=== PATIENT | male | born 1945 | race Caucasian/White ===

== ENCOUNTER 2021-04-09 08:07 | Outpatient (CLI) | payer MEDICARE, SELFPAY ==
[2021-04-09 08:46] LABS: Alveolar/Arterial O2 Gradient 16.8 mmHg; Base Excess ABG 1.6 mEq/l (+/-2.0); Carboxyhemoglobin 0.3 % THb (0-2.0); Fractional Inspired Oxygen 21 %; HCO3 ABG 25.5 mEq/l (22.0-26.0); Methemoglobin ABG 0.3 %THb (0-1.5); Oxygen Content ABG 22.4 %vol (16.0-22.0); Oxyhemoglobin 95.7 % THb (90.0-100.0); PCO2 ABG 38.2 mmHg (35.0-45.0); PO2 ABG 87.2 mmHg (80.0-100.0); PO2 FiO2 Ratio Arterial Blood 4.15 %; Reduced Hemoglobin 3.7 %THb (0-5.0); Total Hemoglobin 16.6 g/dL (12.0-18.0); pH ABG 7.443 (7.350-7.450)
[2021-04-09 08:48] LABS: Device ROOM AIR; Modified Allen's Test Pass; Site Drawn RIGHT RADIAL
--- NOTE | 2021-04-09 13:56 | WPDPFTINT ---
PFT Procedure Performed PFT Procedure Performed Plethysmography (Lung Vol) Diffusing Cap (DLCO) Flow Vol Loop Spirometry w/o Bronchodil PFT Interpretation Lung volumes were measured with the body plethysmography method. Lung volumes are unremarkable. Spirometry showed normal expiratory flow rates and a normal FEV1 to FVC ratio 76%. No post bronchodilator study was carried out. Lung diffusion capacity is within the normal range at 92%. The expiratory limb of the flow volume loop is unremarkable. Impression: Spirometry, lung volumes, and lung diffusion capacity all within the normal range.
== END 2021-04-09 08:08 | disposition home or self-care (01) ==
LOC: ANHPFT 08:12
PROVIDERS: PCP Internal Medicine
DX: D75.1 Secondary polycythemia (principal)
CPT/HCPCS: 36600; 82375; 82805; 83050; 94375; 94726; 94729

== ENCOUNTER 2022-01-26 09:50 | Outpatient (CLI) | payer MEDICARE, SELFPAY ==
--- NOTE | ~2022-01-26 | XR_ITS ---
EXAMINATION: XR foot LT min 3V, XR foot RT min 3V DATE: 01/26/2022 10:19 INDICATION: Bilateral foot pain and stiffness TECHNIQUE: 1. Standing dorsal plantar, two oblique and lateral views of the left foot were obtained. 2. Standing dorsal plantar, two oblique and lateral views of the right foot were obtained. COMPARISON: None. FINDINGS: Diffuse osteopenia throughout both feet. Bilateral mild pes planus and hindfoot valgus no fracture in either foot. Relatively symmetric pattern of mild to moderate polyarticular osteoarthritis throughou t the bilateral feet and ankles most prominent at the calcaneocuboid, second and third tarsal metatar hector, first metatarsophalangeal and multiple interphalangeal joints and mild at the remaining joints. No erosions to suggest inflammatory arthritis. Small to moderate sized bilateral Achilles and plantar calcaneal spurs. Soft tissues are unremarkable. No evident ankle joint effusions. IMPRESSION: 1. Bilateral mild pes planus and hindfoot valgus. 2. Relative symmetric pattern of mild to moderate polyarticular osteoarthritis at the bilateral feet and ankles. Reviewed, dictated and finalized at location A. IMPRESSION: 1. Bilateral mild pes planus and hindfoot valgus. 2. Relative symmetric pattern of mild to moderate polyarticular osteoarthritis at the bilateral feet and ankles.
== END 2022-01-26 09:51 | disposition home or self-care (01) ==
LOC: CHSIMG 09:53
PROVIDERS: PCP Internal Medicine; Visit Provider Orthopaedic Surgery
DX: M79.672 Pain in left foot (principal); M79.671 Pain in right foot
CPT/HCPCS: 73630

== ENCOUNTER 2022-03-12 09:14 | Emergency (ER) | payer MEDICARE, SELFPAY ==
--- NOTE | ~2022-03-12 | CT_ITS ---
EXAMINATION: CT brain wo con INDICATION: Dizziness and nausea COMPARISON: 08/22/2016 TECHNIQUE: Standard unenhanced head CT. The dose-length product (DLP) was 529.67 mGy-cm. The mA was a djusted according to patient size. Iterative reconstruction technique was employed. FINDINGS: There is no acute intraparenchymal hemorrhage. No evidence of mass lesion. No evidence of a cute infarction. There is mild periventricular and subcortical hypodensity probably related to small vessel ischemic disease. There is mild prominence of the sulci and ventricles related to cerebral atr ophy. Intracranial calcified cerebral atherosclerosis is noted. There are no extra-axial collections. There is no mass effect or midline shift. The orbits and soft tissues are unremarkable. The visualiz ed sinuses and mastoid air cells are well aerated. IMPRESSION: 1. No acute intracranial abnormality. 2. Age related findings. Reviewed, dictated and finalized at location B. ETING SUPPORT COORDINATOR
[2022-03-12 09:20] VITALS: BP 179/93; PULSE 94; RESP 17; TEMP 36.8; O2SAT 98
--- NOTE | 2022-03-12 09:23 | ECG_ITS ---
Measurements Intervals [place]cer Rate: 92 P: 50 HI: 207 QRS: -19 QRSD: 98 T: 46 QT: 373 QTc: 462 Interpretive Statements SINUS RHYTHM CONSIDER INFERIOR INFARCT, AGE INDETERMINATE ABNORMAL ECG NO PREVIOUS ECG AVAILABLE FOR COMPARISON Electronically Signed On 03-12-2022 11:57:35 STUNT PERFORMER by Vikas Sommers D.O.
[2022-03-12 09:33] LABS: Basophils Absolute Auto 0.1 K/mm3 (0.0-0.1); Basophils Percent Auto 0.8 % (0.2-1.2); Eosinophils Absolute Auto 0.3 K/mm3 (0-0.3); Eosinophils Percent Auto 2.5 % (0-4.4); Hematocrit 47.1 % (42.0-52.0); Immature Granulocyte Absolute 0.02 K/mm3 (0.00-0.031); Immature Granulocyte Percent A 0.2 % (0-0.5); Lymphocytes Absolute Auto 1.53 K/mm3 (0.9-3.2); Lymphocytes Percent Auto 15.2 % (18.3-44.2); Mean Corpuscular HGB Conc 36.1 g/dl (32-36); Mean Corpuscular Hemoglobin 32.8 pg (26-34); Mean Corpuscular Volume 90.9 fl (80-100); Mean Platelet Volume 9.4 fl (7.4-10.4); Monocytes Absolute Auto 1.1 K/mm3 (0.1-0.6); Monocytes Percent Auto 11.3 % (2.6-8.5); Neutrophils Absolute Auto 7.1 K/mm3 (1.3-6.7); Platelet Count Result 251 k/mm3 (150-375); Red Blood Count 5.18 M/mm3 (4.6-6.20); Red Cell Distribution Width 12.5 % (11.5-14.5); White Blood Count 10.1 K/mm3 (4.5-10.0)
[2022-03-12 09:42] LABS: Glucose Point of Care 179 mg/dl (65-105)
[2022-03-12 09:43] LABS: Alanine Aminotransferase 41 U/L (6-50); Albumin Level 4.8 g/dL (3.5-5.1); Alkaline Phosphatase 60 U/L (38-126); Anion Gap 13 mmol/L (8-16); Aspartate Amino Transferase 36 U/L (17-59); Bilirubin,Total 0.7 mg/dL (0.2-1.3); Blood Urea Nitrogen 14 mg/dL (9-20); Calcium 8.9 mg/dL (8.4-10.2); Carbon Dioxide 24 mmol/L (22-30); Chloride 99 mmol/L (98-107); Estimated CRCL calculation 85 ml/min; Estimated Glomerular Filt Rate > 60; Glucose 182 mg/dL (65-110); Potassium 3.4 mmol/L (3.4-5.0); Sodium 136 mmol/L (137-145)
[2022-03-12 09:44] LABS: INR 1.1; Prothrombin Time 13.5 Seconds (11.1-14.7)
[2022-03-12 09:45] LABS: Partial Thromboplastin Time 24.5 SECONDS (22.3-36.8)
[2022-03-12 09:54] LABS: Troponin I < 0.012 ng/mL (0.000-0.034)
[2022-03-12 10:32] VITALS: PULSE 84; RESP 16; O2SAT 96
[2022-03-12 10:34] VITALS: BP 145/84; PULSE 81
[2022-03-12 10:36] VITALS: BP 153/87; PULSE 86
[2022-03-12 10:37] VITALS: BP 152/84; PULSE 93
--- NOTE | 2022-03-12 11:33 | ED.DIZZY ---
HPI - Dizziness General Chief Complaint: Dizziness Stated Complaint: dizzy Time Seen by Provider: 03/12/22 09:55 Source: patient Mode of arrival: ambulatory Limitations: no limitations History of Present Illness HPI Narrative: 77-year-old male presents to the ED via private vehicle. Patient states he was driving his home from a dental office when they pulled off around [facility] to eat. While coming off of the highway patient states he got very dizzy. Patient states he is unable to continue to drive and they did ticket puller. Patient states it felt like the room was spinning and he was unsteady on his feet. He got in the passenger side seat so his could drive when they decided to come to the ER. Patient had eaten breakfast at about 830 this morning. Patient states he has never had any symptoms like this before. Patient states he felt very unsteady almost like he was drunk for short period of time. Upon arrival patient did have 1 emesis and after the emesis patient states he feels much better. Upon assessment patient denies any dizziness, lightheadedness, nausea, vomiting. He states that this time all of his symptoms have resolved. Patient denies any leg or arm weakness or facial paralysis during this episode. He states he just felt like he was drunk and it hit him all of a sudden. Patient denied any chest pain, shortness of breath, rib pain radiating down his left arm. Related Data Allergies Allergy/AdvReac Type Severity Reaction Status Date / Time niacin Allergy Intermediate FLUSHING Verified 03/12/22 09:25 Penicillins Allergy Unknown HIVES Verified 03/12/22 09:25 Sulfa (Sulfonamide AdvReac Intermediate NAUSEA/VOMI Verified 03/12/22 09:25 Antibiotics) TING Review of Systems Review of Systems: CONSTITUTIONAL: Denies fever, chills, or sweats. EYES: Denies visual changes, redness, or discharge. ENT: Denies rhinorrhea, congestion, sore throat, or otalgia. CARDIOVASCULAR: Denies chest pain, palpitations, or edema. RESPIRATORY: Denies cough or dyspnea. GASTROINTESTINAL: Nausea and vomiting x1 that relieves symptoms. GENITOURINARY: Denies dysuria or hematuria. SKIN: Denies rash or itching. MUSCULOSKELETAL: Denies back pain, joint pain, or myalgia. NEUROLOGIC: Dizziness/lightheadedness with feeling unbalanced episode lasting 30 minutes. PSYCHIATRIC: Denies anxiety or depression. [facility] Past Medical History Medical History (Updated 03/12/22 @ 11:50 by Lakisha Lackey APRN) Peripheral arterial disease with history of revascularization Peripheral neuritis of both feet Plantar fasciitis of right foot Social History Social History Smoking status: Unknown if ever smoked Exam Narrative: GENERAL: Well-appearing, well-nourished, and in no acute distress. HEAD: Normocephalic, atraumatic. EYES: PERRLA and EOMI. ENT: Nares clear, no rhinorrhea or epistaxis. Mucous membranes moist. Oropharynx without tonsillar hypertrophy exudate or other lesions. Bilateral TMs pearly lizama nonbulging NECK: Supple. No adenopathy or masses. No carotid bruits or JVD CHEST: Clear to auscultation. No respiratory distress. No wheezes rales or rhonchi HEART: Regular rate and rhythm. No murmur heard. Normal peripheral pulses. ABDOMEN: Soft, nontender, nondistended, normal active bowel sounds. EXTREMITIES: Normal range of motion. No edema. SKIN: Warm, dry, no rash. NEURO: No focal deficits. Alert and oriented x3. PSYCH: Normal mood and affect. Course Course Emergency Course: Patient without any complaints during entire stay. Patient had no episodes of dizziness, lightheadedness, feeling imbalance. Patient stated is steady. Reviewed results with patient. Patient ready to be discharged home. Discharge plan follow-up with primary for further management. Vital Signs Vital signs: Vital Signs Temperature 36.8 C 03/12/22 09:20 Pulse Rate 94 03/12/22 09:20 Respiratory Rate 17 11
[2022-03-12 12:03] VITALS: BP 134/78; PULSE 87; RESP 18; O2SAT 97
== END 2022-03-12 12:05 | disposition home or self-care (01) ==
PROVIDERS: Emergency Medicine; Emergency Provider Nurse Practitioner Family; PCP Internal Medicine
DX: R42 Dizziness and giddiness (principal); G62.9 Polyneuropathy, unspecified; I73.9 Peripheral vascular disease, unspecified; R94.31 Abnormal electrocardiogram [ECG] [EKG]
CPT/HCPCS: 36415; 70450; 80053; 82948; 84484; 85025; 85610; 85730; 93005; 99284

== ENCOUNTER 2022-11-10 09:21 | Outpatient (RCR) | payer MEDICARE, SELFPAY ==
--- NOTE | 2022-11-10 10:03 | PTOPEVAL1 ---
Assessment and note entered by Xavier Mead Evaluation Information Assessment Status Evaluation Diagnosis right L4-L5 radiculopathy Onset 10/18/22 Subjective Information Pt. reports that he has had right side back and buttock pain since about 10/18/22. He reports that it started after a trip to [place] after sitting on an airplane. He describes pain as a burn in the right buttock. He states that pain is not worsened with anything particular. He does notice most with laying in bed and trying to turn over. He states that the pain has been less intense over the past 2 days. He reports that he attempted steroids but they did not help. He states that long periods of walking can increase his pain. He does wake at night due to pain. He reports that he enjoys yardwork but is limited due to pain. He reports that he can stand for a couple hours still, pain will just worsen. He reports that his goal is to decrease his pain. Reported Pain Level Pain Score 4: Self Report Assessment PT Clinical Summary Pt. is a 77 year old male who enters the clinic with lumbar radiculopathy. He presents with impaired flexibility, impaired l.e. strength, impaired posutral awareness, and pain. Conitnued skilled PT is indicated in order to improve these areas to allow for improved comfort with IADL's. Plan of Care Interventions Electrical Stimulation,Gait Training,Hot Pack/Cold Pack,Manual Therapy,Neuro Re-education,Patient/ Caregiver Educati,Therapeutic Activities, Therapeutic Exercise PT Services Indicated Yes Treatment Frequency and 3x/week x 12 visits Duration These treatments will address the objective and functional deficits as defined above. The patient will be advanced safely and appropriately in order for the patient to progress towards his/her prior level of function. Additional exercises will be introduced and as well as a comprehensive home exercise program upon discharge, if needed, ?to ensure carryover of functional gains achieved in the clinic. This treatment plan has been reviewed and agreement upon by the patient.
--- NOTE | 2022-11-10 10:04 | OPREHPOC ---
Outpatient Therapy Plan of Care This is a Multidisciplinary Plan of Care that may contain components documented by all disciplines (PT, OT, and ST.) PT Problem 1 PT Problem #1 Knowledge Deficit PT Goal 1 Goal Pt. will be independent with a HEP addressing trunk mobility Target Visit 2 PT Problem 2 PT Problem #2 Impaired Flexibility PT Goal 1 Goal Pt. will increase bilateral HS flexibility to 15 degrees from full knee extension or less to improve standing postural awareness. Target Visit 12 PT Problem 3 PT Problem #3 Impaired Strength PT Goal 1 Goal Pt. will increase right DF strength to 4/5 and right hip abduction strength to 4+/6 Target Visit 9 PT Goal 2 Goal Pt. will increase l.e. strength in order to improve standing endurance with yardwork PT Problem 4 PT Problem #4 Impaired Functional Mobil PT Goal 1 Goal Pt. will report being able to perform yardwork with 2/10 pain at worst for 2 hour duration. Target Visit 12
--- NOTE | 2022-12-03 13:25 | PTOPPROG ---
Assessment and note entered by JT File, PT Evaluation Information Assessment Status Progress Diagnosis right L4-L5 radiculopathy Onset 10/18/22 Subjective Information Patient reports no pain at the beginning of today' s session. He notes that phsyical therapy has greatly helped in reducing his pain levels, reporting the last time he experienced pain was last week. Patient states his ability to perform yardwork and other household activities has improved since initial visit. Assessment PT Clinical Summary Mr. Plaza has attended 10 sessions of skilled PT to address lumbar radiculopathy showing good progress towards goals. He demonstrated improved LE strength and lumbar flexion ROM since initial evaluation, however still shows limitations in hip abduction and R ankle dorisflexion strength as well as hamstring flexibility and overall trunk ROM. He reports decreased pain levels since starting physical therapy, stating he can walk for longer distances without pain, perform yardwork, and move furniture. Continue skilled therapy is advised to address remaining limitations and improve patient's ability to perform daily activities. Plan of Care Interventions Gait Training,Manual Therapy,Neuro Re-education, Patient/Caregiver Educati,Therapeutic Activities, Therapeutic Exercise PT Services Indicated Yes Treatment Frequency and continue for 2 remaining visits per his initial Duration POC These treatments will address the objective and functional deficits as defined above. The patient will be advanced safely and appropriately in order for the patient to progress towards his/her prior level of function. Additional exercises will be introduced and as well as a comprehensive home exercise program upon discharge, if needed, ?to ensure carryover of functional gains achieved in the clinic. This treatment plan has been reviewed and agreement upon by the patient.
--- NOTE | 2022-12-03 13:25 | OPREHPOC ---
Outpatient Therapy Plan of Care This is a Multidisciplinary Plan of Care that may contain components documented by all disciplines (PT, OT, and ST.) PT Problem 1 PT Problem #1 Knowledge Deficit PT Goal 1 Goal Pt. will be independent with a HEP addressing trunk mobility Target Visit 2 Progress Met PT Problem 2 PT Problem #2 Impaired Flexibility PT Goal 1 Goal Pt. will increase bilateral HS flexibility to 15 degrees from full knee extension or less to improve standing postural awareness. Target Visit 12 Progress Partially Met Comment progressing PT Problem 3 PT Problem #3 Impaired Strength PT Goal 1 Goal Pt. will increase right DF strength to 4+/5 and right hip abduction strength to 5/5 Target Visit 9 Progress Met Comment goal met, progressed goal to continue strenghtening PT Goal 2 Goal Pt. will increase l.e. strength in order to improve standing endurance with yardwork Target Visit 12 Progress Partially Met Comment progressing PT Problem 4 PT Problem #4 Impaired Functional Mobil PT Goal 1 Goal Pt. will report being able to perform yardwork with 2/10 pain at worst for 2 hour duration. Target Visit 12 Progress Partially Met Comment progressing
--- NOTE | 2022-12-10 13:09 | PTOPDC ---
Assessment and note entered by JT File, PT Evaluation Information Assessment Status Re-evaluation Diagnosis right L4-L5 radiculopathy Onset 10/18/22 Subjective Information Patient reports no pain at the beginning of today' s session. He does note that yesterday he experienced a dull ache in the R buttock/hip area, rating it a 2/10 for discomfort. He has not any greater pain than this in the past few weeks. He states no difficulty with performing any tasks in the home or walking in the community. He notes he has been able to perform yardwork as usual, with wearing a back brace when riding his lawnmower. Reported Pain Level Pain Score 0: Self Report Assessment PT Clinical Summary Mr. Plaza has attended 12 sessions of skilled PT to address lumbar radiculopathy meeting all goals for strength, flexibility, and pain. He currently has 8% functional decline as assessed by the Oswestry, decreased from initial assessment. On this date, he demonstrated increased LE strength and flexibility since last measurements. He reports a significant decrease in pain levels since starting physical therapy, and states that pain now has a shorter duration with less intensity. He notes he has been able to perform yardwork and house maintenance with no limitations . Patient to be discharged with independent HEP to maintain current strength, flexibility, and pain levels. Plan of Care PT Services Indicated Yes
--- NOTE | 2022-12-10 13:09 | OPREHPOC ---
Outpatient Therapy Plan of Care This is a Multidisciplinary Plan of Care that may contain components documented by all disciplines (PT, OT, and ST.) PT Problem 1 PT Problem #1 Knowledge Deficit PT Goal 1 Goal Pt. will be independent with a HEP addressing trunk mobility Target Visit 2 Progress Met PT Problem 2 PT Problem #2 Impaired Flexibility PT Goal 1 Goal Pt. will increase bilateral HS flexibility to 15 degrees from full knee extension or less to improve standing postural awareness. Target Visit 12 Progress Met Comment goal met PT Problem 3 PT Problem #3 Impaired Strength PT Goal 1 Goal Pt. will increase right DF strength to 4+/5 and right hip abduction strength to 5/5 Target Visit 9 Progress Met Comment goal met PT Goal 2 Goal Pt. will increase l.e. strength in order to improve standing endurance with yardwork Target Visit 12 Progress Met Comment goal met PT Problem 4 PT Problem #4 Impaired Functional Mobil PT Goal 1 Goal Pt. will report being able to perform yardwork with 2/10 pain at worst for 2 hour duration. Target Visit 12 Progress Met Comment progressing
== END 2022-12-10 16:16 | disposition home or self-care (01) ==
LOC: CHSPT 09:21
PROVIDERS: PCP Internal Medicine; Visit Provider Internal Medicine
DX: M54.16 Radiculopathy, lumbar region (principal)
CPT/HCPCS: 97014; 97110; 97140; 97161; G0283

== ENCOUNTER 2024-01-04 08:13 | Outpatient (CLI) | payer MEDICARE, SELFPAY ==
--- NOTE | ~2024-01-04 | US_ITS ---
Limited Abdominal Sonogram: Real-time sonographic imaging of the right upper quadrant was performed. Clinical History: Biliary sludge Findings: The liver appears mildly echogenic, with no evidence of mass lesion or bile duct dilatatio n. Main portal vein demonstrates normal direction of flow. The gallbladder is well distended, and dem onstrates 5 mm probable gallbladder wall polyp. The common bile duct measures 4 mm. The visualized p ancreas, aorta, and IVC are unremarkable. Impression: Probable mild fatty infiltration of the liver. 5 mm gallbladder wall polyp. Reviewed, dictated and finalized at location M. Impression: Probable mild fatty infiltration of the liver. 5 mm gallbladder wall polyp.
== END 2024-01-04 08:14 | disposition home or self-care (01) ==
LOC: CHSIMG 08:19
PROVIDERS: PCP Internal Medicine; Visit Provider Internal Medicine
DX: K83.9 Disease of biliary tract, unspecified (principal); K82.4 Cholesterolosis of gallbladder
CPT/HCPCS: 76705

== ENCOUNTER 2024-03-11 07:59 | Outpatient (CLI) | payer MEDICARE, SELFPAY ==
--- NOTE | ~2024-03-11 | XR_ITS ---
EXAM: XR shoulder LT min 2V DATE: 03/11/2024 08:13 HISTORY: Lt. shoulder pain, NKI . COMPARISON: None available. FINDINGS: Decreased mineralization. No fracture or dislocation. No lytic or blastic lesion. Moderate AC joint and mild glenohumeral joint degenerative change. No erosion or periosteal change. Soft tiss ues within normal limits. IMPRESSION: Osteopenia. Moderate AC joint and mild glenohumeral joint osteoarthritis. Reviewed, dictated and finalized at location K. N AMERICAN STUDIES PROFESSOR IMPRESSION: Osteopenia. Moderate AC joint and mild glenohumeral joint osteoarth ritis.
== END 2024-03-11 08:00 | disposition home or self-care (01) ==
PROVIDERS: PCP Internal Medicine; Visit Provider Internal Medicine
DX: M25.512 Pain in left shoulder (principal); M85.88 Other specified disorders of bone density and structure, other site; M19.012 Primary osteoarthritis, left shoulder
CPT/HCPCS: 73030

== ENCOUNTER 2024-07-21 15:26 | Outpatient (CLI) | payer MEDICARE, SELFPAY ==
--- NOTE | ~2024-07-21 | XR_ITS ---
Exam: Abdomen 1V HISTORY: abdominal pain, diarrhea x1 day COMPARISON: None. TECHNIQUE: Supine images of the abdomen FINDINGS: Bowel gas pattern is non-obstructive. Fecal stasis within the colon. Air is identified within the rectum. There is no free air or deep sulci. No pathologic calcifications are seen. Lung bases are unremarkable. Bones and soft tissues are age-appropriate. IMPRESSION: Nonspecific, nonobstructive bowel gas pattern. Reviewed, dictated and finalized at location A.
--- OUTSIDE RECORDS SUMMARY | 2024-07-21 15:30 | XMS_ITS | CONTINUITY OF CARE DOCUMENT ---
Author Name cici bolanos Address Unknown Organization [facility] Address [address] [place] [address] Phone [phone] Care Team Providers Care Core Inserter Name Role Phone Tanisha Acevedo MD Unavailable [phone] GUZMAN STOKES MD Unavailable GUZMAN STOKES MD Unavailable PROBLEMS Condition Status Date Provider Notes Vitamin D deficiency active Tanisha Mora ANEURYSM OF ARTERY OF LOWER EXTREMITY;STENTED completed - Tanisha Acevedo MD HTN ESSENTIAL; active Tanisha Acevedo MD NEG ANGIO, PVD;HAD STENT TO POP AND BELOW 07/2012 completed - Tanisha Acevedo MD Screening active Tanisha Acevedo MD PVD; active Tanisha Acevedo MD cannot a begum x 2.5 HYPERCHOLESTEROLEMIA completed - Promise Kauffman MD ;INTOL TO STATINS, GERD active Tanisha Acevedo MD Tobacco use, quit active Tanisha Acevedo MD t oo remote to screen DIASTOLIC DYSFUNCTION; completed 3 - Tanisha Acevedo MD AORTIC VALVE SCLEROSIS completed 3 - Tanisha Acevedo MD Overweight active Tanisha Acevedo MD R/O DVT completed - Tanisha Acevedo MD DVT completed - Tanisha Acevedo MD Erythrocytosis active Tanisha Acevedo MD fami lyail Vitamin B12 deficiency;folate ok active Tanisha Acevedo MD iron ok, macorcytois Hyperlipidemia intolerant of all statins, hihg crp and low lpa active Tanisha Acevedo MD cnnot affore ne zlet or repatha , on lequivoi Carotid artery disease;PLAQUIE completed - Tanisha Acevedo MD Cerebral atherosclerosis active Tanisha taylor MD SLEEP APNEA; active Tanisha Acevedo MD Neuropathy active Tanisha Acevedo MD Diabetes mellitus, type 2 active Tanisha chavira MD neg egfr and uacr CAD;carotid plaquing active Tanisha Mora CANNOT AFFORD XARELTGO Diastolic dysfunction active Tanisha Acevedo MD Hypertriglyceridemia completed - Tanisha Acevedo MD cannot afford vasceap, into,l to lopdd covid ;22 psot vaccine active Tanisha Acevedo MD AORTIC STENOSIS active Tanisha Acevedo MD ENCOUNTERS Date Type Provider Location Encounter Diag nosis 1 - 1 In-person encounter Office Visit Tanisha Acevedo MD [facility] Office CAD;carotid plaquingAORTIC STENOSIS 1 - 1 In-person encounter Office Visit Tanisha Acevedo MD [place] Hypertriglyceridemia 2 - 4 In-person encounter Office Visit Corby Franco [facility] 3 - 3 In-person encounter Office Visit Corby Franco [facility] 8 - 8 In-person encounter Office Visit Tanisha Acevedo MD [place] Screening 6 - 6 In-person encounter Office Visit Tanisha Acevedo MD [facility] Hyperlipidemia intolerant of all statins, hihg crp and low lpa 2 - 2 In-person encounter Office Visit Tanisha Acevedo MD [facility] covid ;22 psot vaccine 1 - 1 In-person encounter Office Visit Tanisha Acevedo MD [facility] PVD;Hypertriglyceridemia 3 - 3 In-person encounter Office Visit Tanisha Acevedo MD [facility] 6 - 6 In-person encounter Office Visit Tanisha Acevedo MD [facility] 5 - 5 In-person encounter Office Visit Tanisha Acevedo MD [facility] Hyperlipidemia intolerant of all statins, hihg crp and low lpa 8 - 8 In-person encounter Office Visit Tanisha Acevedo MD [facility] Screeningcovid ;22 psot vaccine 3 - 3 In-person encounter Office Visit Tanisha Acevedo MD [facility] covid ;22 psot vaccine 1 - 1 In-person encounter Office Visit Tanisha Acevedo MD [facility] 0 - 0 In-person encounter Office Visit Tanisha Acevedo MD [facility] Carotid artery disease;PLAQUIECAD;carotid plaquingDiastolic dysfunctionHypertriglyceridemia 8 - 8 In-person encounter Office Visit [facility] 7 - 7 In-person encounter Office Visit Tanisha Acevedo MD [facility] GERDDiabetes mellitus, type 2 8 - 8 In-person encounter Office Visit Tanisha Acevedo MD [facility] OverweightErythrocytosisVitamin B12 deficiency;folate ok 3 - 3 In-person encounter Office Visit Tanisha Acevedo MD [facility] ScreeningTobacco use, quitOverweightNeuropathy 8 - 8 In-person encounter Office Visit Tanisha Acevedo MD [facility] ScreeningPVD;R/O DVTDVTCerebral atherosclerosisSLEEP APNEA; 6 - 6 In-person encounter Office Visit Promise Kauffman MD [facility] HYPERCHOLESTEROLEMIAHyperlipidemia intolerant of all statins, hihg crp and low lpa 4 - 6 In-person encounter Office Visit Corby Franco MD [facility] 2 - 2 In-person encounter Office Visit Corby Franco MD [facility] 2 - 7 In-person encounter Office Visit Mateo Agustin MD [facility] Vitamin B12 deficiency;folate ok 4 - 4 In-person encounter Office Visit Mateo Agustin MD [facility] Erythrocytosis 9 - 9 In-person encounter Office Visit Corby Franco MD [facility] 6 - 6 In-person encounter Office Visit Tanisha Acevedo MD [facility] HTN ESSENTIAL;ScreeningPVD;AORTIC VALVE SCLEROSISOverweight 3 - 3 In-person encounter Office Visit Corby Franco MD [facility] Screening 1 - 1 In-person encounter Office Visit Corby Franco MD [facility] Office 1 - 1 In-person encounter Office Visit Tanisha Acevedo MD [facility] 6 - 6 In-person encounter Office Visit Tanisha Acevedo MD [facility] 6 - 6 In-person encounter Office Visit Tanisha Acevedo MD [facility] HTN ESSENTIAL;PVD; 0 - 0 In-person encounter Office Visit Corby Franco MD [facility] 3 - 3 In-person encounter Office Visit Tanisha Acevedo MD [facility] ANEURYSM OF ARTERY OF LOWER EXTREMITY;STENTEDHTN ESSENTIAL;PVD;HAD STENT TO POP AND BELOW 07/2012PVD;DIASTOLIC DYSFUNCTION;Overweight 8 - 8 In-person encounter Office Visit Tanisha Acevedo MD [facility] ANEURYSM OF ARTERY OF LOWER EXTREMITY;STENTEDHTN ESSENTIAL;ScreeningPVD;HYPERCHOLESTERO LEMIAGERDTobacco use, quit VITAL SIGNS Date Observation Value Provider Body Mass Index (Ratio) 28.03 kg/m2 Lauren Acevedo MD blood pressure, cuff size regular Ke rri Ottoniel blood pressure, diastolic 84 mm[Hg] Ke rri Ottoniel blood pressure, systolic 136 mm[Hg] Marisol ri Ottoniel oxygen saturation, oximetry 97 % Nano Ottoniel pulse rate 74 /min Nano Billy [facility] weight E&M 201 [lb_av] Nano Billy [facility] height E&M 71 [in_i] Nano Billy [facility] Body Mass Index (Ratio) 28.73 kg/m2 Lauren Acevedo MD blood pressure, diastolic 86 mm[Hg] Josh Acevedo MD blood pressure, systolic 140 mm[Hg] Winston Acevedo MD oxygen saturation, oximetry 97 % Cuate Lynne RN respiratory rate E&M 18 /min Cuate Sharp melba RN pulse rate 83 /min Cuate Lynne RN weight E&M 206 [lb_av] Cuate Lynne RN Body Mass Index (Ratio) 29.15 kg/m2 Sund eep Salvador VELEZ blood pressure, diastolic 110 mm[Hg] Stephanie Harrell blood pressure, systolic 167 mm[Hg] Portia Harrell pulse rate 84 /min Liz Harrell oxygen saturation, oximetry 96 % Liz Harrell weight E&M 209 [lb_av] Liz Harrell blood pressure, cuff size large An neri Harrell height E&M 71 [in_i] Liz Harrell Body Mass Index (Ratio) 29.01 kg/m2 Sund eep Franco MD blood pressure, diastolic 74 mm[Hg] Li [facility]Log[facility] blood pressure, systolic 136 mm[Hg] Nicole [facility]Logic blood pressure, diastolic 74 mm[Hg] Shayy dave Adams blood pressure, systolic 136 mm[Hg] Jeevan hooker [facility] oxygen saturation, oximetry 96 % Jessica Bryan pulse rate 90 /min Jessica mora weight E&M 208 [lb_av] Jessicakennedy mora respiratory rate E&M 16 /min Judy Adams blood pressure, cuff size large Shayy dave [facility] height E&M 71 [in_i] Jessica mora Body Mass Index (Ratio) 28.31 kg/m2 Lauren bob Serotkitty VELEZ weight E&M 203 [lb_av] Tanisha Serota M D pulse rate 72 /min Tanisha Serota M Morgan blood pressure, diastolic 90 mm[Hg] Moreno rvey Serota blood pressure, systolic 137 mm[Hg] Winston eddyy Serota Body Mass Index (Ratio) 29.01 kg/m2 Lauren bob Serotkitty VELEZ weight E&M 208 [lb_av] Tanisha Serota M Morgan pulse rate 75 /min Tanisha Serota M Morgan blood pressure, diastolic 91 mm[Hg] Moreno rvey Serota blood pressure, systolic 138 mm[Hg] Winston eddyy Serota Body Mass Index (Ratio) 28.45 kg/m2 Lauren bob Serotkitty VELEZ weight E&M 204 [lb_av] Tanisha Serota M D blood pressure, diastolic 70 mm[Hg] Moreno rvey Serota blood pressure, systolic 120 mm[Hg] Winston eddyy Serotkitty EVLEZ Body Mass Index (Ratio) 29.01 kg/m2 Lauren Acevedo MD weight E&M 208 [lb_av] Tanisha Mora Body Mass Index (Ratio) 29.43 kg/m2 Lauren Acevedo MD blood pressure, diastolic 90 mm[Hg] Ch astity Mary Grace blood pressure, systolic 155 mm[Hg] Lamar stity Mary Grace oxygen saturation, oximetry 99 % Chastity Mary Grace pulse rate 86 /min Chastity Mary Grace weight E&M 211 [lb_av] Chastity Mary Grace respiratory rate E&M 16 /min Chastit y Mary Grace height E&M 71 [in_i] Chastity Mary Grace Body Mass Index (Ratio) 29.43 kg/m2 Lauren Acevedo MD blood pressure, diastolic 80 mm[Hg] Li nkLogic blood pressure, systolic 150 mm[Hg] Nicole kLog blood pressure, cuff size large Tr shannon Aguilera blood pressure, diastolic 80 mm[Hg] Tr shannon Aguilera blood pressure, systolic 150 mm[Hg] Try len Aguilera oxygen saturation, oximetry 98 % Trynett Aguilera respiratory rate E&M 18 /min Trynett Aguilera pulse rate 97 /min Trynett Aguilera weight E&M 211 [lb_av] Trynett Aguilera height E&M 71 [in_i] Trynett Aguilera Body Mass Index (Ratio) 29.56 kg/m2 Lauren Acevedo MD oxygen saturation, oximetry 98 % Chastity Mary Grace blood pressure, diastolic 93 mm[Hg] Ch astity Mary Grace blood pressure, systolic 161 mm[Hg] Lamar stity Mary Grace pulse rate 74 /min Chastity Mary Grace respiratory rate E&M 16 /min Chastit y Mary Grace weight E&M 212 [lb_av] Chastity Mary Grace height E&M 71 [in_i] Chastity Mary Grace Body Mass Index (Ratio) 29.29 kg/m2 Lauren Acevedo MD blood pressure, cuff size large Ke rri Gruenenfelder blood pressure, diastolic 90 mm[Hg] Ke rri Gruenenfelder blood pressure, systolic 136 mm[Hg] Ker ri Gruenenfelder oxygen saturation, oximetry 98 % Nano Gruenenfelder respiratory rate E&M 16 /min Nano G ruenenfelder pulse rate 70 /min Nano Gruenenfe er weight E&M 210 [lb_av] Nano Gruenenfe er height E&M 71 [in_i] Nano Gruenenfe er Body Mass Index (Ratio) 30.26 kg/m2 Lauren Acevedo MD blood pressure, cuff size large Ke rri Gruenenfelder blood pressure, diastolic 80 mm[Hg] Ke rri Gruenenfelder blood pressure, systolic 160 mm[Hg] Ker ri Gruenenfelder oxygen saturation, oximetry 98 % Nano Gruenenfelder respiratory rate E&M 16 /min Nano G ruenenfelder pulse rate 70 /min Nano Gruenenfe er weight E&M 217 [lb_av] Nano Gruenenfe er height E&M 71 [in_i] Nano Gruenenfe er Body Mass Index (Ratio) 29.84 kg/m2 Lauren Acevedo MD blood pressure, diastolic 91 mm[Hg] To [facility] blood pressure, systolic 159 mm[Hg] Ton [facility] oxygen saturation, oximetry 99 % [facility] respiratory rate E&M 16 /min [facility] pulse rate 69 /min [facility] weight E&M 214 [lb_av] [facility] height E&M 71 [in_i] [facility] Body Mass Index (Ratio) 29.29 kg/m2 Lauren Acevedo MD oxygen saturation, oximetry 98 % [facility] blood pressure, diastolic 113 mm[Hg] To [facility] blood pressure, systolic 155 mm[Hg] Ton [facility] respiratory rate E&M 16 /min [facility] pulse rate 84 /min [facility] weight E&M 210 [lb_av] [facility] height E&M 71 [in_i] [facility] Body Mass Index (Ratio) 29.84 kg/m2 Myke Sen RN blood pressure, cuff size large Ra henri Slusser blood pressure, diastolic 84 mm[Hg] Ra henri Slusser blood pressure, systolic 142 mm[Hg] Rac hel Slusser respiratory rate E&M 16 /min Cammie Slusser oxygen saturation, oximetry 98 % Cammie Slusser pulse rate 94 /min Cammie Slusser weight E&M 214 [lb_av] Cammie Slusser height E&M 71 [in_i] Cammie Slusser pulse rate 84 /min Tanisha Mora blood pressure, diastolic 80 mm[Hg] Josh Acevedo MD blood pressure, systolic 150 mm[Hg] Winston Acevedo MD Body Mass Index (Ratio) 29.98 kg/m2 Lauren Acevedo MD oxygen saturation, oximetry 99 % Lissett Brody blood pressure, diastolic 88 mm[Hg] Ch astity Mary Grace blood pressure, systolic 158 mm[Hg] Lamar stity Mary Grace pulse rate 70 /min Chastity Mary Grcae respiratory rate E&M 16 /min Chastit y Mary Grace weight E&M 215 [lb_av] Chastity Mary Grace height E&M 71 [in_i] [facility] Body Mass Index (Ratio) 30.04 kg/m2 Lauren Acevedo MD blood pressure, diastolic 99 mm[Hg] Shannan Emir Chapman blood pressure, systolic 179 mm[Hg] Carolyn Chapman oxygen saturation, oximetry 98 % Mickybrenda Chapman respiratory rate E&M 18 /min Makenzie jennifer Chapman pulse rate 73 /min Micky Espinoza reese weight E&M 215.4 [lb_av] Micky laytimothy height E&M 71 [in_i] Micky Espinoza [facility] Body Mass Index (Ratio) 29.06 kg/m2 Lauren Acevedo MD blood pressure, resting Yes Krysta Winslow Chapman blood pressure, diastolic 100 mm[Hg] Shannan Emir Chapman blood pressure, systolic 157 mm[Hg] Carolyn Chapman oxygen saturation, oximetry 99 % Mickybrenda Chapman respiratory rate E&M 18 /min Makenzie Chapman pulse rate 84 /min Micky Espinoza on weight E&M 208.4 [lb_av] Micky Aguilar enson height E&M 71 [in_i] Micky Espinoza [facility] Body Mass Index (Ratio) 29.29 kg/m2 Colby Kauffman MD blood pressure, diastolic 76 mm[Hg] Ta joel Daniels blood pressure, systolic 118 mm[Hg] Hernandez reginald Daniels oxygen saturation, oximetry 98 % Didi Daniels respiratory rate E&M 20 /min Didi Daniels pulse rate 88 /min Didi Daniels blood pressure, cuff size regular Darci Daniels weight E&M 210 [lb_av] Didi Daniels height E&M 71 [in_i] Didi Daniels blood pressure, diastolic 90 mm[Hg] Sascha Grider blood pressure, systolic 140 mm[Hg] Madison Grider pulse rate 83 /min Codi Grider oxygen saturation, oximetry 98 % Codi Grider respiratory rate E&M 18 /min Codi Grider Body Mass Index (Ratio) 29.12 kg/m2 Koby Mackenzieby weight E&M 208.8 [lb_av] Codi Grider blood pressure, diastolic, right arm 86 m m[Hg] Codi Marni blood pressure, systolic, right arm 138 m m[Hg] Codi Marni blood pressure, diastolic 90 mm[Hg] Sascha Grider blood pressure, systolic 140 mm[Hg] Madison Grider pulse rate 80 /min Codi Grider oxygen saturation, oximetry 98 % Codi Grider respiratory rate E&M 16 /min Codi Minier Body Mass Index (Ratio) 29.15 kg/m2 Koby ty Minier weight E&M 209 [lb_av] Codi Mackenzieby blood pressure, diastolic 97 mm[Hg] rahel Tres blood pressure, systolic 158 mm[Hg] Carleen montemayor Tres pulse rate 70 /min Diane Tres oxygen saturation, oximetry 98 % Diane Joshua respiratory rate E&M 15 /min Diane Tres Body Mass Index (Ratio) 28.31 kg/m2 [facility] [lb_av] Diane Joshua blood pressure, diastolic 98 mm[Hg] Me rahel Rodolfo blood pressure, systolic 151 mm[Hg] Carleen sim Rodolfo pulse rate 91 /min Diane Rodolfo oxygen saturation, oximetry 98 % Diane Rodolfo respiratory rate E&M 18 /min Diane Rodolfo Body Mass Index (Ratio) 28.39 kg/m2 [facility] Rodolfo weight E&M 203.6 [lb_av] Diane Rodolfo blood pressure, diastolic, left arm 84 mm [Hg] Karoline Horsey blood pressure, systolic, left arm 138 mm [Hg] Karoline Horsey blood pressure, diastolic, right arm 82 m m[Hg] Karoline Horsey blood pressure, systolic, right arm 140 m m[Hg] Karoline Horsey pulse rate 92 /min Karoline Horsey oxygen saturation, oximetry 98 % Karoline Horsey respiratory rate E&M 18 /min Karoline Horsey Body Mass Index (Ratio) 28.70 kg/m2 Sand ra Horsey blood pressure, diastolic 84 mm[Hg] Sa ndra Horsey blood pressure, systolic 138 mm[Hg] Cason ariane Horsey weight E&M 205.8 [lb_av] Karoline Horsey blood pressure, diastolic 86 mm[Hg] Me rahel Joshua blood pressure, systolic 155 mm[Hg] Carleen sim Joshua pulse rate 82 /min Diane Joshua Body Mass Index (Ratio) 28.17 kg/m2 [facility], oximetry 98 % Diane Joshua respiratory rate E&M 15 /min Diane Joshua weight E&M 202 [lb_av] Diane Joshua Body Mass Index (Ratio) 28.73 kg/m2 Verito Reynolds blood pressure, diastolic 80 mm[Hg] Me rahel Reynolds blood pressure, systolic 132 mm[Hg] Carleen Reynolds pulse rate 90 /min Diane Reynolds oxygen saturation, oximetry 95 % Diane Reynolds respiratory rate E&M 15 /min Diane Reynolds weight E&M 206 [lb_av] Diane Rodolfo blood pressure, diastolic 87 mm[Hg] Gaytan ndeep Salvador VELEZ blood pressure, systolic 156 mm[Hg] [facility] Salvador VELEZ pulse rate 85 /min Corby Salvador VELEZ oxygen saturation, oximetry 96 % Corby Salvador VELEZ respiratory rate E&M 15 /min Corby Salvador VELEZ weight E&M 208.4 [lb_av] Corby Salvador VELEZ blood pressure, diastolic 87 mm[Hg] [facility], systolic 156 mm[Hg] [facility] Body Mass Index (Ratio) 29.11 kg/m2 [facility] pulse rate 85 /min [facility] oxygen saturation, oximetry 96 % [facility] respiratory rate E&M 15 /min [facility] weight E&M 208 [lb_av] [facility] Body Mass Index (Ratio) 29.37 kg/m2 iRley Gaspar BI LEAD pulse rate 74 /min Azeb Gaspar BI LEAD blood pressure, diastolic 72 mm[Hg] Sh donovan Gaspar [employer] LEAD blood pressure, systolic 138 mm[Hg] She jeff Gaspar [employer] LEAD weight E&M 209.8 [lb_av] Azeb Gaspar BI LEAD blood pressure, diastolic, left arm 95 mm [Hg] Cuate Lynne RN blood pressure, systolic, left arm 140 mm [Hg] Cuate Lynne RN blood pressure, diastolic, right arm 100 mm[Hg] Cuate Ladds RN blood pressure, systolic, right arm 164 m m[Hg] Cuate Ladds RN blood pressure, diastolic 95 mm[Hg] Holden gutierrez Lynne RN blood pressure, systolic 140 mm[Hg] Cuate Ladds RN pulse rate 96 /min Cuate Ladds RN oxygen saturation, oximetry 98 % Cuate Ladds RN respiratory rate E&M 15 /min Cuate Sharp rks RN Body Mass Index (Ratio) 29.25 kg/m2 Cuate Ladds RN weight E&M 209 [lb_av] Cuate Ladds RN Body Mass Index (Ratio) 28.42 kg/m2 Anea airam [facility] blood pressure, diastolic 78 mm[Hg] An eatris [facility] blood pressure, systolic 112 mm[Hg] Ane atris [facility] pulse rate 100 /min Aneatris [facility] oxygen saturation, oximetry 99 % Aneatris [facility] respiratory rate E&M 18 /min Aneatri s [facility] weight E&M 203 [lb_av] [facility], [facility], left arm 93 mm [Hg] Cuate Ladds RN blood pressure, systolic, left arm 161 mm [Hg] Cuate Ladds RN blood pressure, diastolic, right arm 93 m m[Hg] Cuate Lynne RN blood pressure, systolic, right arm 139 m m[Hg] Cuate Lynne RN blood pressure, diastolic 93 mm[Hg] Holden Lynne RN blood pressure, systolic 161 mm[Hg] Cuate Lynne RN pulse rate 76 /min Cuate Lynne RN oxygen saturation, oximetry 98 % Cuate Lynne RN respiratory rate E&M 16 /min Cuate Sharp rks RN Body Mass Index (Ratio) 28.56 kg/m2 Cuate Lynne RN weight E&M 204 [lb_av] Cuate Lynne CRUZ blood pressure, diastolic, left arm 90 mm [Hg] Cuate Lynne CRUZ blood pressure, systolic, left arm 151 mm [Hg] Cuate Lynne CRUZ blood pressure, diastolic, right arm 98 m m[Hg] Cuate Lynne CRUZ blood pressure, systolic, right arm 138 m m[Hg] Cuate Laddmelba [facility] blood pressure, diastolic 90 mm[Hg] Holden brenda Lynne CRUZ blood pressure, systolic 151 mm[Hg] Cuate Laddmelba [facility] pulse rate 68 /min Cuate Laddmelba [facility] oxygen saturation, oximetry 98 % Cuate Laddmelba [facility] respiratory rate E&M 16 /min Cuate cardmelba [facility] Body Mass Index (Ratio) 28.22 kg/m2 Cuate Laddmelba [facility] weight E&M 201.6 [lb_av] Cuate Lynne RN height E&M 71 [in_i] Cuate Lynne RN ALLERGIES Allergy Name Onset Date Reaction Criticality Status PLAVIX HEART BURN HEART BURN Low Criticalit y suspended LOPID Low Criticality active PROCARDIA XL High Criticality active CILOSTAZOL Low Criticality active CONTRAVE Low Criticality active WELCHOL GI Low Criticality active LIVALO LEG PAIN High Criticality active CRESTOR High Criticality active LIPITOR High Criticality active NIACIN High Criticality active RESULTS Date Observation Value Provider Reference Range Interpretation Location 06/15 hemoglobin A1C, blood, as % of total hemoglobin 7.0 % OF TOTAL HGB [facility] <5.7 High 06/15 basophils as percent of blood leukocytes 1.7 % [facility] Normal 06/15 eosinophils as percent of blood leukocytes 2.7 % [facility] Normal 06/15 monocyte count, blood 16.3 % [facility] Normal 06/15 lymphocyte count, blood 22.8 % [facility] Normal 06/15 neutrophils as percent of blood leukocytes 56.5 % [facility] Normal 06/15 basophils, absolute, manual 88 cells/mcL [facility] 0-200 Normal 06/15 eosinophils, absolute, manual 140 cells/mcL [facility] 15-500 Normal 06/15 monocytes, absolute, manual 848 cells/mcL [facility] 200-950 Normal 06/15 lymphocytes, absolute 1186 CELLS/UL [facility] 850-3900 Normal 06/15 Absolute Neutrophil count 2938 cells/mcL [facility] 4146-3305 Normal 06/15 mean platelet volume 10.5 fL [facility] 7.5-12.5 Normal 06/15 platelet count 240 THOUSAND/UL [facility] 140-400 Normal 06/15 red blood cell distribution width 12.7 % [facility] 11.0-15.0 Normal 06/15 mean corpuscular hemoglobin concentration, RBC 33.7 G/DL [facility] 32.0-36.0 Normal 06/15 mean corpuscular hemoglobin, RBC 32.7 pg [facility] 27.0-33.0 Normal 06/15 mean corpuscular volume, RBC 96.9 fL [facility] 80.0-100.0 Normal 06/15 hematocrit, blood 53.7 % [facility] 38.5-50.0 High 06/15 hemoglobin electrophoresis, blood 18.1 [facility] 13.2-17.1 High 06/15 erythrocyte (RBC) count 5.54 MILLION/UL [facility] 4.20-5.80 Normal 06/15 leukocyte (white blood cells) count, blood 5.2 THOUSAND/UL [facility] 3.8-10.8 Normal 06/15 calcium, serum 9.6 mg/dL [facility] 8.6-10.3 Normal 06/15 carbon dioxide, venous blood 33 mmol/L [facility] 20-32 High 06/15 chloride, serum 97 mmol/L [facility] 98-110 Low 06/15 potassium, serum 3.8 mmol/L [facility] 3.5-5.3 Normal 06/15 sodium, serum 136 mmol/L [facility] 135-146 Normal 06/15 urea nitrogen/creatinin e ratio, serum SEE NOTE: (calc) [facility] 6-22 06/15 creatinine, serum 0.86 mg/dL [facility] 0.70-1.28 Normal 06/15 urea nitrogen, blood 13 mg/dL [facility] 7-25 Normal 06/15 blood glucose, random 142 mg/dL [facility] 65-99 High cholesterol, non-HDL, total 71 MG/DL (CALC) [facility] <130 Normal cholesterol/HDL ratio, serum, percent 2.3 (calc) [facility] <5.0 Normal LDL cholesterol, serum 52 MG/DL (CALC) [facility] Normal triglyceride, serum, fasting 103 mg/dL [facility] <150 Normal HDL cholesterol, serum 54 mg/dL [facility] > OR = 40 Normal cholesterol, serum 125 mg/dL [facility] <200 Normal 06/14 cholesterol, non-HDL, total 97 MG/DL (CALC) [facility] <130 Normal 06/14 cholesterol/HDL ratio, serum, percent 2.8 (calc) [facility] <5.0 Normal 06/14 LDL cholesterol, serum 74 MG/DL (CALC) [facility] Normal 06/14 triglyceride, serum, fasting 145 mg/dL [facility] <150 Normal 06/14 HDL cholesterol, serum 53 mg/dL [facility] > OR = 40 Normal 06/14 cholesterol, serum 150 mg/dL [facility] <200 Normal 07/28 cholesterol, non-HDL, total 69 MG/DL (CALC) [facility] <130 Normal 07/28 cholesterol/HDL ratio, serum, percent 2.4 (calc) [facility] <5.0 Normal 07/28 LDL cholesterol, serum 48 MG/DL (CALC) [facility] Normal 07/28 triglyceride, serum, fasting 133 mg/dL [facility] <150 Normal 07/28 HDL cholesterol, serum 49 mg/dL [facility] > OR = 40 Normal 07/28 cholesterol, serum 118 mg/dL [facility] <200 Normal 07/19 ferritin, serum 116 ng/mL [facility] 30-400 07/19 iron saturation percent, serum 41 % [facility] 15-55 07/19 iron, serum 146 ug/dL [facility] 38-169 07/19 iron binding capacity, unsaturated 214 ug/dL [facility] 449-425 2184/0 3/19 iron binding capacity, total 360 ug/dL [facility] 329-876 9103/0 3/19 lipoprotein, beta, serum, point, quantitative, calculated 105 mg/dL [facility] 0-99 High 07/19 HDL cholesterol, serum 42 mg/dL [facility] >39 07/19 triglyceride, serum, random 210 mg/dL [facility] 0-149 High 07/19 cholesterol, serum 183 mg/dL [facility] [phone]/0 3/19 calcium, serum 9.2 mg/dL [facility] 8.6-10.2 07/19 carbon dioxide, venous blood 22 mmol/L [facility] 20-29 07/19 chloride, serum 94 mmol/L [facility] 96-106 Low 07/19 potassium, serum 3.7 mmol/L [facility] 3.5-5.2 07/19 sodium, serum 133 mmol/L [facility] 134-144 Low 07/19 urea nitrogen/creatinin e ratio, serum 18 [facility] 10-24 07/19 eGFR if 106 mL/min/{1.73 _m2} [facility] >59 07/19 eGFR if not 91 mL/min/{1.73 _m2} [facility] >59 07/19 creatinine, serum 0.73 mg/dL [facility] 0.76-1.27 Low 07/19 urea nitrogen, blood 13 mg/dL [facility] 8-27 07/19 blood glucose, random 107 mg/dL [facility] 65-99 High 07/19 basophil count, absolute 0.1 x10E3/uL [facility] 0.0-0.2 07/19 Eosinophil Absolute Count 0.2 X10E3/UL [facility] 0.0-0.4 07/19 monocyte count, blood, automated 0.7 X10E3/UL [facility] 0.1-0.9 07/19 lymphocyte count, blood, automated 1.3 X10E3/UL [facility] 0.7-3.1 07/19 Absolute Neutrophils 3.1 X10E3/UL [facility] 1.4-7.0 07/19 basophils as percent of blood leukocytes 1 % [facility] Not Estab. 07/19 eosinophils as percent of blood leukocytes 4 % [facility] Not Estab. 07/19 monocytes as percent of blood leukocytes 14 % [facility] Not Estab. 07/19 lymphocytes as percent of blood leukocytes 23 % [facility] Not Estab. 07/19 neutrophils as percent of blood leukocytes 58 % [facility] Not Estab. 07/19 platelet count 194 X10E3/UL [facility] 192-222 8810/0 3/19 red blood cell distribution width 13.0 % [facility] 11.6-15.4 07/19 mean corpuscular hemoglobin concentration, RBC 34.5 G/DL [facility] 31.5-35.7 07/19 mean corpuscular hemoglobin, RBC 33.1 pg [facility] 26.6-33.0 High 07/19 mean corpuscular volume, RBC 96 fL [facility] 79-97 07/19 hematocrit, blood 53.1 % [facility] 37.5-51.0 High 07/19 hemoglobin, blood 18.3 g/dL [facility] 13.0-17.7 High 07/19 erythrocyte (RBC) count 5.53 X10E6/UL [facility] 4.14-5.80 07/19 leukocyte count, blood 5.4 X10E3/UL [facility] 3.4-10.8 05/16 rapid plasma reagin antibody screen Non Reactive [facility] Non Reactive 05/16 calcium, serum 9.5 mg/dL [facility] 8.6-10.2 05/16 carbon dioxide, venous blood 20 mmol/L [facility] 20-29 05/16 chloride, serum 97 mmol/L [facility] 96-106 05/16 potassium, serum 3.9 mmol/L [facility] 3.5-5.2 05/16 sodium, serum 133 mmol/L [facility] 134-144 Low 05/16 urea nitrogen/creatinin e ratio, serum 16 [facility] 10-24 05/16 eGFR if 104 mL/min/{1.73 _m2} [facility] >59 05/16 eGFR if not 90 mL/min/{1.73 _m2} [facility] >59 05/16 creatinine, serum 0.76 mg/dL [facility] 0.76-1.27 05/16 urea nitrogen, blood 12 mg/dL [facility] 8-27 05/16 blood glucose, random 170 mg/dL [facility] 65-99 High 05/16 basophil count, absolute 0.1 x10E3/uL [facility] 0.0-0.2 05/16 Eosinophil Absolute Count 0.2 X10E3/UL [facility] 0.0-0.4 05/16 monocyte count, blood, automated 0.9 X10E3/UL [facility] 0.1-0.9 05/16 lymphocyte count, blood, automated 1.2 X10E3/UL [facility] 0.7-3.1 05/16 Absolute Neutrophils 4.5 X10E3/UL [facility] 1.4-7.0 05/16 basophils as percent of blood leukocytes 1 % [facility] Not Estab. 05/16 eosinophils as percent of blood leukocytes 3 % [facility] Not Estab. 05/16 monocytes as percent of blood leukocytes 14 % [facility] Not Estab. 05/16 lymphocytes as percent of blood leukocytes 17 % [facility] Not Estab. 05/16 neutrophils as percent of blood leukocytes 65 % [facility] Not Estab. 05/16 platelet count 239 X10E3/UL [facility] 369-303 8529/0 1/14 red blood cell distribution width 13.0 % [facility] 11.6-15.4 05/16 mean corpuscular hemoglobin concentration, RBC 34.8 G/DL [facility] 31.5-35.7 05/16 mean corpuscular hemoglobin, RBC 33.6 pg [facility] 26.6-33.0 High 05/16 mean corpuscular volume, RBC 97 fL [facility] 79-97 05/16 hematocrit, blood 53.2 % [facility] 37.5-51.0 High 05/16 hemoglobin, blood 18.5 g/dL [facility] 13.0-17.7 High 05/16 erythrocyte (RBC) count 5.51 X10E6/UL [facility] 4.14-5.80 05/16 leukocyte count, blood 6.8 X10E3/UL [facility] 3.4-10.8 06/02 lipoprotein, beta, serum, point, quantitative, calculated 61 mg/dL [facility] 0-99 06/02 very low density lipoproteins 50 mg/dL [facility] 5-40 High 06/02 HDL cholesterol, serum 48 mg/dL [facility] >39 06/02 triglyceride, serum, random 252 mg/dL [facility] 0-149 High 06/02 cholesterol, serum 159 mg/dL [facility] 150-977 1891/0 1/31 prothrombin time (patient) 11.2 s [facility] 9.1-12.0 06/02 international normalized ratio (INR) 1.1 [facility] 0.8-1.2 06/02 calcium, serum 9.3 mg/dL [facility] 8.6-10.2 06/02 carbon dioxide, venous blood 21 mmol/L [facility] 20-29 06/02 chloride, serum 97 mmol/L [facility] 96-106 06/02 potassium, serum 4.3 mmol/L [facility] 3.5-5.2 06/02 sodium, serum 136 mmol/L [facility] 356-317 0131/0 1/31 urea nitrogen/creatinin e ratio, serum 14 [facility] 10-24 06/02 eGFR if 99 mL/min/{1.73 _m2} [facility] >59 06/02 eGFR if not 86 mL/min/{1.73 _m2} [facility] >59 06/02 creatinine, serum 0.86 mg/dL [facility] 0.76-1.27 06/02 urea nitrogen, blood 12 mg/dL [facility] 8-27 06/02 blood glucose, random 104 mg/dL [facility] 65-99 High 06/02 basophil count, absolute 0.1 x10E3/uL [facility] 0.0-0.2 06/02 Eosinophil Absolute Count 0.2 X10E3/UL [facility] 0.0-0.4 06/02 monocyte count, blood, automated 0.9 X10E3/UL [facility] 0.1-0.9 06/02 lymphocyte count, blood, automated 1.2 X10E3/UL [facility] 0.7-3.1 06/02 Absolute Neutrophils 4.1 X10E3/UL [facility] 1.4-7.0 06/02 basophils as percent of blood leukocytes 1 % [facility] Not Estab. 06/02 eosinophils as percent of blood leukocytes 2 % [facility] Not Estab. 06/02 monocytes as percent of blood leukocytes 14 % [facility] Not Estab. 06/02 lymphocytes as percent of blood leukocytes 19 % [facility] Not Estab. 06/02 neutrophils as percent of blood leukocytes 64 % [facility] Not Estab. 06/02 platelet count 217 X10E3/UL [facility] 078-745 0912/0 1/31 red blood cell distribution width 14.1 % [facility] 11.6-15.4 06/02 mean corpuscular hemoglobin concentration, RBC 34.2 G/DL [facility] 31.5-35.7 06/02 mean corpuscular hemoglobin, RBC 33.1 pg [facility] 26.6-33.0 High 06/02 mean corpuscular volume, RBC 97 fL [facility] 79-97 06/02 hematocrit, blood 48.9 % [facility] 37.5-51.0 06/02 hemoglobin, blood 16.7 g/dL [facility] 13.0-17.7 06/02 erythrocyte (RBC) count 5.05 X10E6/UL [facility] 4.14-5.80 06/02 leukocyte count, blood 6.4 X10E3/UL [facility] 3.4-10.8 06/21 prothrombin time (patient) 11.4 s [facility] 9.1-12.0 06/21 international normalized ratio (INR) 1.1 [facility] 0.8-1.2 06/21 lipoprotein, beta, serum, point, quantitative, calculated 29 mg/dL [facility] 0-99 06/21 very low density lipoproteins 41 mg/dL [facility] 5-40 High 06/21 HDL cholesterol, serum 43 mg/dL [facility] >39 06/21 triglyceride, serum, random 205 mg/dL [facility] 0-149 High 06/21 cholesterol, serum 113 mg/dL [facility] 369-058 5458/1 2/19 calcium, serum 9.1 mg/dL [facility] 8.6-10.2 06/21 carbon dioxide, venous blood 23 mmol/L [facility] 20-29 06/21 chloride, serum 97 mmol/L [facility] 96-106 06/21 potassium, serum 4.4 mmol/L [facility] 3.5-5.2 06/21 sodium, serum 136 mmol/L [facility] 312-724 1336/1 2/19 urea nitrogen/creatinin e ratio, serum 10 [facility] 10-24 06/21 eGFR if 99 mL/min/{1.73 _m2} [facility] >59 06/21 eGFR if not 86 mL/min/{1.73 _m2} [facility] >59 06/21 creatinine, serum 0.87 mg/dL [facility] 0.76-1.27 06/21 urea nitrogen, blood 9 mg/dL [facility] 8-27 06/21 blood glucose, random 121 mg/dL [facility] 65-99 High 06/21 basophil count, absolute 0.1 x10E3/uL [facility] 0.0-0.2 06/21 Eosinophil Absolute Count 0.2 X10E3/UL [facility] 0.0-0.4 06/21 monocyte count, blood, automated 0.8 X10E3/UL [facility] 0.1-0.9 06/21 lymphocyte count, blood, automated 1.5 X10E3/UL [facility] 0.7-3.1 06/21 Absolute Neutrophils 4.0 X10E3/UL [facility] 1.4-7.0 06/21 basophils as percent of blood leukocytes 1 % [facility] Not Estab. 06/21 eosinophils as percent of blood leukocytes 2 % [facility] Not Estab. 06/21 monocytes as percent of blood leukocytes 12 % [facility] Not Estab. 06/21 lymphocytes as percent of blood leukocytes 23 % [facility] Not Estab. 06/21 neutrophils as percent of blood leukocytes 62 % [facility] Not Estab. 06/21 platelet count 251 X10E3/UL [facility] [phone]/1 2/19 red blood cell distribution width 13.2 % [facility] 12.3-15.4 06/21 mean corpuscular hemoglobin concentration, RBC 34.1 G/DL [facility] 31.5-35.7 06/21 mean corpuscular hemoglobin, RBC 32.2 pg [facility] 26.6-33.0 06/21 mean corpuscular volume, RBC 95 fL [facility] 79-97 06/21 hematocrit, blood 46.4 % [facility] 37.5-51.0 06/21 hemoglobin, blood 15.8 g/dL [facility] 13.0-17.7 06/21 erythrocyte (RBC) count 4.90 X10E6/UL [facility] 4.14-5.80 06/21 leukocyte count, blood 6.5 X10E3/UL [facility] 3.4-10.8 05/16 eGFR if 102 mL/min/{1.73 _m2} [facility] >59 05/16 eGFR if not 89 mL/min/{1.73 _m2} [facility] >59 05/16 creatinine, serum 0.80 mg/dL [facility] 0.76-1.27 09/08 hemoglobin A1C, blood, as % of total hemoglobin 5.4 % [facility] 4.8-5.6 09/08 lipoprotein, beta, serum, point, quantitative, calculated 47 mg/dL [facility] 0-99 09/08 very low density lipoproteins 32 mg/dL [facility] 5-40 09/08 HDL cholesterol, serum 50 mg/dL [facility] >39 09/08 triglyceride, serum, random 161 mg/dL [facility] 0-149 High 09/08 cholesterol, serum 129 mg/dL [facility] [phone]/0 5/09 calcium, serum 9.0 mg/dL [facility] 8.6-10.2 09/08 carbon dioxide, venous blood 22 mmol/L [facility] 20-29 09/08 chloride, serum 101 mmol/L [facility] 96-106 09/08 potassium, serum 4.5 mmol/L [facility] 3.5-5.2 09/08 sodium, serum 140 mmol/L [facility] [phone]/0 5/09 urea nitrogen/creatinin e ratio, serum 14 [facility] 10-24 09/08 eGFR if 103 mL/min/{1.73 _m2} [facility] >59 09/08 eGFR if not 89 mL/min/{1.73 _m2} [facility] >59 09/08 creatinine, serum 0.81 mg/dL [facility] 0.76-1.27 09/08 urea nitrogen, blood 11 mg/dL [facility] 8-27 09/08 blood glucose, random 108 mg/dL [facility] 65-99 High 09/08 basophil count, absolute 0.0 x10E3/uL [facility] 0.0-0.2 09/08 Eosinophil Absolute Count 0.2 X10E3/UL [facility] 0.0-0.4 09/08 monocyte count, blood, automated 0.9 X10E3/UL [facility] 0.1-0.9 09/08 lymphocyte count, blood, automated 1.4 X10E3/UL [facility] 0.7-3.1 09/08 Absolute Neutrophils 3.5 X10E3/UL [facility] 1.4-7.0 09/08 basophils as percent of blood leukocytes 1 % [facility] Not Estab. 09/08 eosinophils as percent of blood leukocytes 3 % [facility] Not Estab. 09/08 monocytes as percent of blood leukocytes 15 % [facility] Not Estab. 09/08 lymphocytes as percent of blood leukocytes 23 % [facility] Not Estab. 09/08 neutrophils as percent of blood leukocytes 58 % [facility] Not Estab. 09/08 platelet count 202 X10E3/UL [facility] [phone]/0 5/09 red blood cell distribution width 13.5 % [facility] 12.3-15.4 09/08 mean corpuscular hemoglobin concentration, RBC 33.3 G/DL [facility] 31.5-35.7 09/08 mean corpuscular hemoglobin, RBC 33.0 pg [facility] 26.6-33.0 09/08 mean corpuscular volume, RBC 99 fL [facility] 79-97 High 09/08 hematocrit, blood 50.7 % [facility] 37.5-51.0 09/08 hemoglobin, blood 16.9 g/dL [facility] 13.0-17.7 09/08 erythrocyte (RBC) count 5.12 X10E6/UL [facility] 4.14-5.80 09/08 leukocyte count, blood 6.1 X10E3/UL [facility] 3.4-10.8 09/03 pro brain natriuretic peptide 22 pg/mL [facility] 0-376 09/03 iron saturation percent, serum 42 % [facility] 15-55 09/03 iron, serum 145 ug/dL [facility] 38-169 09/03 iron binding capacity, unsaturated 199 ug/dL [facility] [phone]/0 5/04 iron binding capacity, total 344 ug/dL [facility] 074-730 0995/0 5/04 ferritin, serum 155 ng/mL [facility] 30-400 09/03 B-12, serum 1015 pg/mL [facility] [phone] 09/03 folate, serum 7.7 ng/mL [facility] >3.0 09/03 rapid plasma [facility] hemoglobin A1C, blood, as % of total hemoglobin 5.7 % [facility] 4.8-5.6 High 09/03 basophil count, absolute 0.1 x10E3/uL [facility] 0.0-0.2 09/03 Eosinophil Absolute Count 0.2 X10E3/UL [facility] 0.0-0.4 09/03 monocyte count, blood, automated 0.7 X10E3/UL [facility] 0.1-0.9 09/03 lymphocyte count, blood, automated 1.2 X10E3/UL [facility] 0.7-3.1 09/03 Absolute Neutrophils 2.8 X10E3/UL [facility] 1.4-7.0 09/03 basophils as percent of blood leukocytes 1 % [facility] Not Estab. 09/03 eosinophils as percent of blood leukocytes 3 % [facility] Not Estab. 09/03 monocytes as percent of blood leukocytes 14 % [facility] Not Estab. 09/03 lymphocytes as percent of blood leukocytes 24 % [facility] Not Estab. 09/03 neutrophils as percent of blood leukocytes 58 % [facility] Not Estab. 09/03 platelet count 174 X10E3/UL [facility] 534-400 7859/0 5/04 red blood cell distribution width 13.8 % [facility] 12.3-15.4 09/03 mean corpuscular hemoglobin concentration, RBC 34.0 G/DL [facility] 31.5-35.7 09/03 mean corpuscular hemoglobin, RBC 33.3 pg [facility] 26.6-33.0 High 09/03 mean corpuscular volume, RBC 98 fL [facility] 79-97 High 09/03 hematocrit, blood 53.0 % [facility] 37.5-51.0 High 09/03 hemoglobin, blood 18.0 g/dL [facility] 13.0-17.7 High 09/03 erythrocyte (RBC) count 5.40 X10E6/UL [facility] 4.14-5.80 09/03 leukocyte count, blood 5.0 X10E3/UL [facility] 3.4-10.8 08/21 cholesterol, non-HDL, total 60 MG/DL (CALC) [facility] <130 Normal 08/21 cholesterol/HDL ratio, serum, percent 2.2 (calc) [facility] <5.0 Normal 08/21 LDL cholesterol, serum 44 MG/DL (CALC) [facility] Normal 08/21 triglyceride, serum, fasting 84 mg/dL [facility] <150 Normal 08/21 HDL cholesterol, serum 52 mg/dL [facility] >40 Normal 08/21 cholesterol, serum 112 mg/dL [facility] <200 Normal 06/13 coagulation managed by Cuate Lynne RN 06/13 international normalized ratio (INR) 2.0 Nano Grkylienereyer Normal 06/13 prothrombin time (patient) 24.6 s Nano Gruenenfelder 06/05 coagulation managed by Cuate Lynne RN 06/05 international normalized ratio (INR) 3.4 Nano Gruenenfelder Normal 06/05 prothrombin time (patient) 41.2 s Nano Gruenenfelder 05/14 coagulation managed by Cuate Lynne RN 05/14 international normalized ratio (INR) 1.71 Cuate Lynne RN Normal 05/14 prothrombin time (patient) 18.60 s Cuate Lynne RN 06/18 coagulation managed by Cuate Lynne RN 06/18 international normalized ratio (INR) 2.13 Cuate Lynne RN Normal 06/18 prothrombin time (patient) 23.50 s Cuate Lynne RN 06/04 coagulation managed by Cuate Lynne RN 06/04 international normalized ratio (INR) 2.11 Cuate Lynne RN Normal 06/04 prothrombin time (patient) 23.20 s Cuate Lynne RN 05/22 international normalized ratio (INR) 1.75 Cuate Kaur CRUZ Normal 05/22 prothrombin time (patient) 19.7 s Cuate Marksnicole ARROYO 05/14 coagulation managed by Cuate Lynne CRUZ Cuate Lynne RN 05/14 international normalized ratio (INR) 1.5 Diane Joshua Normal 05/14 prothrombin time (patient) 18.5 s Diane Joshua coagulation managed by Cuate Lynne CRUZ Cuate Lynne CRUZ international normalized ratio (INR) 2.1 Nano Solkirill Normal prothrombin time (patient) 24.7 s Nano Olivareskalianicole thyroid stimulating hormone, serum 1.990 ?IU/ML [facility] 0.270 - 4.200 vitamin b12, serum 190.8 pg/mL [facility] 211.0 - 946.0 Low coagulation managed by Cuate Lynne CRUZ Cuate Lynne RN international normalized ratio (INR) 1.93 Cuate Lynne RN Normal prothrombin time (patient) 21.10 s Cuate Lynne CRUZ coagulation managed by Cuate Lynne CRUZ Cuate Lynne CRUZ international normalized ratio (INR) 1.5 Diane Joshua Normal prothrombin time (patient) 18.5 s Diane Joshua 01/22 prothrombin time (patient) 10.4 s [facility] 9.0-11.5 Normal 01/22 international normalized ratio (INR) 1.0 [facility] Normal 01/22 basophils as percent of blood leukocytes 0.5 % [facility] Normal 01/22 eosinophils as percent of blood leukocytes 3.5 % [facility] Normal 01/22 monocyte count, blood 10.8 % [facility] Normal 01/22 lymphocyte count, blood 27.0 % [facility] Normal 01/22 neutrophils as percent of blood leukocytes 58.2 % [facility] Normal 01/22 basophils, absolute, manual 31 cells/mcL [facility] 0-200 Normal 01/22 eosinophils, absolute, manual 214 cells/mcL [facility] 15-500 Normal 01/22 monocytes, absolute, manual 659 cells/mcL [facility] 200-950 Normal 01/22 lymphocytes, absolute 1647 CELLS/UL [facility] 850-3900 Normal 01/22 Absolute Neutrophil count 3550 cells/mcL [facility] 4121-0027 Normal 01/22 mean platelet volume 8.7 fL [facility] 7.5-11.5 Normal 01/22 platelet count 168 THOUSAND/UL [facility] 140-400 Normal 01/22 red blood cell distribution width 13.9 % [facility] 11.0-15.0 Normal 01/22 mean corpuscular hemoglobin concentration, RBC 32.1 G/DL [facility] 32.0-36.0 Normal 01/22 mean corpuscular hemoglobin, RBC 32.4 pg [facility] 27.0-33.0 Normal 01/22 mean corpuscular volume, RBC 101.1 fL [facility] 80.0-100.0 High 01/22 hematocrit, blood 52.9 % [facility] 38.5-50.0 High 01/22 hemoglobin electrophoresis, blood 17.0 [facility] 13.2-17.1 Normal 01/22 erythrocyte (RBC) count 5.23 MILLION/UL [facility] 4.20-5.80 Normal 01/22 leukocyte (white blood cells) count, blood 6.1 THOUSAND/UL [facility] 3.8-10.8 Normal 01/22 calcium, serum 9.0 mg/dL [facility] 8.6-10.3 Normal 01/22 carbon dioxide, venous blood 22 mmol/L [facility] 19-30 Normal 01/22 chloride, serum 104 mmol/L [facility] 98-110 Normal 01/22 potassium, serum 4.1 mmol/L [facility] 3.5-5.3 Normal 01/22 sodium, serum 136 mmol/L [facility] 135-146 Normal 01/22 urea nitrogen/creatinin e ratio, serum NOT APPLICABLE (calc) [facility] 6-01/22 Estimated Glomerular Filtration Rate (calc) 104 mL/min/{1.73 _m2} [facility] > OR = 60 Normal 01/22 creatinine, serum 0.85 mg/dL [facility] 0.70-1.25 Normal 01/22 urea nitrogen, blood 11 mg/dL [facility] 7-25 Normal 01/22 blood glucose, random 113 mg/dL [facility] 65-99 High 01/22 cholesterol, non-HDL, total 189 MG/DL (CALC) [facility] High 01/22 cholesterol/HDL ratio, serum, percent 5.0 (calc) [facility] < OR = 5.0 Normal 01/22 LDL cholesterol, serum 153 MG/DL (CALC) [facility] <130 High 01/22 triglyceride, serum, fasting 181 mg/dL [facility] <150 High 01/22 HDL cholesterol, serum 47 mg/dL [facility] > OR = 40 Normal 01/22 cholesterol, serum 236 mg/dL [facility] 125-200 High 12/07 very low density lipoproteins 93.2 mg/dL [facility] 5.0 - 40.0 High 12/07 LDL/HDL (low-density lipoprotein/high-d ensity lipoprotein) ratio -25.0 RATIO [facility] - 12/07 HDL cholesterol, serum 40.0 mg/dL [facility] 35.0 - 55.0 12/07 sum total cholesterol 248.0 mg/dL [facility] 0.0 - 200.0 High 12/07 Triglycerides-dire ct 466.0 mg/dL [facility] 0.0 - 150.0 High 06/06 alanine aminotransferase (SGPT), serum 43 1/L [facility] 06/06 aspartate aminotransferase (SGOT), serum 30 1/L [facility] 06/06 creatinine, serum 0.79 mg/dL [facility] 06/06 potassium, serum 3.6 mmol/L [facility] 06/06 sodium, serum 136 mmol/L [facility] prothrombin time (patient) 10.9 s [facility] 9.0-11.5 Normal international normalized ratio (INR) 1.0 [facility] Normal basophils as percent of blood leukocytes 0.5 % [facility] Normal eosinophils as percent of blood leukocytes 3.8 % [facility] Normal monocyte count, blood 11.2 % [facility] lymphocyte count, blood 21.2 % [facility] Normal neutrophils as percent of blood leukocytes 63.3 % [facility] Normal basophils, absolute, manual 32 cells/mcL [facility] 0-200 Normal eosinophils, absolute, manual 239 cells/mcL [facility] 15-500 Normal monocytes, absolute, manual 706 cells/mcL [facility] 200-950 Normal lymphocytes, absolute 1336 CELLS/UL [facility] [phone] Normal Absolute Neutrophil count 3988 cells/mcL [facility] [phone] Normal platelet count 177 THOUSAND/UL [facility] 140-400 Normal red blood cell distribution width 15.0 % [facility] 11.0-15.0 Normal mean corpuscular hemoglobin concentration, RBC 32.7 G/DL [facility] 32.0-36.0 Normal mean corpuscular hemoglobin, RBC 33.6 pg [facility] 27.0-33.0 High mean corpuscular volume, RBC 102.9 fL [facility] 80.0-100.0 High hematocrit, blood 49.9 % [facility] 38.5-50.0 Normal hemoglobin electrophoresis, blood 16.3 [facility] 13.2-17.1 Normal erythrocyte (RBC) count 4.85 MILLION/UL [facility] 4.20-5.80 Normal leukocyte (white blood cells) count, blood 6.3 THOUSAND/UL [facility] 3.8-10.8 Normal calcium, serum 9.4 mg/dL [facility] 8.6-10.3 Normal carbon dioxide, venous blood 27 mmol/L [facility] 19-30 Normal chloride, serum 102 mmol/L [facility] 98-110 Normal potassium, serum 4.2 mmol/L [facility] 3.5-5.3 Normal sodium, serum 138 mmol/L [facility] 135-146 Normal urea nitrogen/creatinin e ratio, serum NOT APPLICABLE (calc) [facility] 6- Estimated Glomerular Filtration Rate (calc) 105 mL/min/{1.73 _m2} [facility] > OR = 60 Normal creatinine, serum 0.85 mg/dL [facility] 0.70-1.25 Normal urea nitrogen, blood 7 mg/dL [facility] 7-25 Normal blood glucose, random 109 mg/dL [facility] 65-99 High 12/22 platelet count 202 10*3/mm3 [facility] 12/22 hematocrit, blood 44.0 % [facility] 12/22 triglyceride, serum, fasting 214 mg/dL [facility] 12/22 cholesterol/HDL ratio, serum 4.4 [facility] 12/22 lipoprotein, beta, serum, point, quantitative, calculated 157 mg/dL [facility] 12/22 cholesterol, serum 258 mg/dL [facility] 12/22 international normalized ratio (INR) 1.0 [facility] 12/22 creatinine, serum 1.41 mg/dL [facility] 12/22 potassium, serum 4.2 mmol/L [facility] 12/22 sodium, serum 139 mmol/L [facility] HISTORY OF MEDICATION USE Medication Status Instructions Dates Provider Indications Com ments clopidogrel 75 mg tablet active Take 1 tablet by mouth once daily Nano Alcazar amlodipine 2.5 mg tablet active Take 1 tablet by mouth once daily 01/10 Seema Ching chlorthalidone 25 mg tablet active Take 1 tablet by mouth once a day 12/15 Nano Alcazar chlorthalidone 25 mg tablet completed Take 1 tablet by mouth once daily 06/23 - 12/15 Nano Alcazar Ozempic 0.25 mg or 0.5 mg(2 mg/1.5 mL) pen injector completed Inject 1/4 mg subcutaneously once a week Take 0.25mg once a week x4 weeks then increase to 0.5mg weekly 11/07 - 06/13 Tanisha Acevedo MD gemfibrozil 600 mg tablet completed 1 tablet by mouth twice a day 10/19 - 11/07 Tanisha Acevedo MD amlodipine 2.5 mg tablet completed Take 1 tablet by mouth once a day TAKE 1 TABLET BY MOUTH ONCE A DAY 09/25 - 11/07 Tanisha Acevedo MD nifedipine 30 mg tablet extended release 24hr completed Take 1 tablet by mouth once a day 09/05 - 09/25 Tanisha Acevedo MD ezetimibe 10 mg tablet completed Take 1 tablet by mouth once daily 07/20 - 09/05 Tanisha Acevedo MD chlorthalidone 25 mg tablet completed Take 1 tablet by mouth once a day Take 1 tablet by mouth once daily 05/14 - 06/23 Nano Alcazar chlorthalidone 25 mg tablet completed Take 1 tablet by mouth once daily 12/11 - 09/05 Tanisha Acevedo MD cyanocobalamin (vitamin B-12) 1,000 mcg tablet extended release active Take 1 tablet by mouth once daily 11/24 Jessica Adams losartan 100 mg tablet active Take 1 tablet by mouth once daily 10/17 Seema Laboyqvio 284 mg/1.5 mL syringe active Tanisha Acevedo MD cholecalciferol (vitamin D3) 125 mcg (5,000 unit) capsule active TAKE 1 CAPSULE BY MOUTH THREE TIMES A WEEK 10/09 Tanisha Acevedo MD clopidogrel 75 mg tablet completed Take 1 tablet by mouth once daily appointment needed for more refills. 05/18 - Nano Alcazar clopidogrel 75 mg tablet completed TAKE 1 TABLET BY MOUTH EVERY DAY 05/16 - 05/18 Tanisha Acevedo MD Cialis 20 mg tablet completed Take 1 tablet by mouth every 72 hours as needed 06/18 - 08/15 Tanisha Acevedo MD ezetimibe 10 mg tablet completed TAKE 1 TABLET BY MOUTH EVERY DAY 06/18 - 07/20 Ary Grande ezetimibe 10 mg tablet completed Take 1 tablet by mouth once daily 06/16 - 06/18 Romeo Ding Zetia 10 mg tablet completed TAKE 1 TABLET BY MOUTH DAILY 01/15 - 06/16 Tanisha Acevedo MD triamcinolone acetonide 0.1% ointment completed APPLY A THIN LAYER OF OINTMENT TOPICALLY TO THE AFFECTED AREA(S) TWICE DAILY - 06/18 Tanisha Acevedo MD nystatin 100,000 unit/gram ointment completed as needed APPLY OINTMENT TOPICALLY TO AFFECTED AREA TWICE DAILY - 12/12 Tanisha Acevedo MD Nexlizet 180-10 mg tablet completed 1 tablet by mouth once a day 07/18 - 01/15 Tanisha Acevedo MD clopidogrel 75 mg tablet completed Take 1 tablet by mouth once a day 06/14 - 05/16 Kristopher Dugan Coreg 25 mg tablet completed 2 tablet twice a day 05/15 - 01/15 Tanisha Acevedo MD XARELTO 2.5 MG ORAL TABLET completed one tab by mouth twice daily Prescribed for cardiovascular protection 05/15 - 12/25 Nano Alcazar cyanocobalamin (vitamin B-12) 1,000 mcg tablet extended release completed Take 1 tablet by mouth once a day 05/13 - 11/24 Jessica Adams #100, 100 days supply, Prescribed by TANISHA ACEVEDO, Filled 03/14/2020 cholecalciferol (vitamin D3) 125 mcg (5,000 unit) capsule completed Take 1 capsule by mouth three times a week 06/01 - 10/09 Chastity Mary Grace PRALUENT 75 MG/ML SUBCUTANEOUS SOLUTION AUTO-INJECTOR completed one injection every two weeks. - 12/25 Nano Alcazar REPATHA SURECLICK 140 MG/ML SUBCUTANEOUS SOLUTION AUTO-INJECTOR completed Inject subcutaneously every 2 weeks [facility]# [id number] 10/17 - Sara Palomares RN SEMAGLUTIDE/PLACE LILLIE completed once a week 10/03 - 09/05 Tanisha Acevedo MD CILOSTAZOL 100 MG ORAL TABLET completed 1/2 tab by mouth twice daily 07/11 - 05/15 Tanisha Acevedo MD TENORMIN 25 MG ORAL TABLET completed ONE TAB. DAILY 06/01 - 05/15 Tanisha Acevedo MD chlorthalidone 25 mg tablet completed once a day 06/01 - 12/11 Lamarstfouzia Brody CILOSTAZOL 100 MG ORAL TABLET completed Take 1/2 tab by mouth twice daily 05/25 - 07/11 Tanisha Acevedo MD RANEXA 500 MG ORAL TABLET EXTENDED RELEASE 12 HOUR completed ONE TAB. TWICE DAILY for chronic angina 06/28 - 07/11 Tanisha Acevedo MD METANX 3-90.314-2-35 MG ORAL CAPSULE completed one dailyl 06/20 - 05/15 Tanisha Acevedo MD VASCEPA 1 GM ORAL CAPSULE completed two pills twcie a day 09/08 - Tanisha Acevedo MD BUPROPION HCL 100 MG ORAL TABLET completed 1 tab by mouth daily, if not effective after 1 week may increase to 1 tab twice daily 09/07 - Tanisha Acevedo MD NALTREXONE HCL 50 MG ORAL TABLET completed 1/2 tab by mouth daily, if not effective after 1 week may increase to 1/2 tab twice daily 09/07 - Tanisha Acevedo MD losartan 100 mg tablet completed Take 1 tablet by mouth once a day 07/17 - 10/17 Ruth Thompsonis VITAMIN D3 5000 UNIT ORAL CAPSULE completed threee times a week 09/03 - 05/15 Tanisha Acevedo MD ZONTIVITY 2.08 MG ORAL TABLET completed one a day 09/02 - 09/07 Tanisha Acevedo MD VITAMIN E COMPLEX CAPSULE completed 1000 unit once a day - 01/15 Micky Chapman aspirin 81 mg tablet,delayed release (DR/EC) active 1 tablet by mouth once a day 09/25 Tanisha Acevedo MD CLOPIDOGREL BISULFATE 75 MG ORAL TABLET completed Take 1 tablet by mouth once daily 07/13 - 05/15 Tanisha Acevedo MD Protonix 20 mg tablet,delayed release (DR/EC) completed 1 tablet once a day as needed 09/25 - 09/05 Tanisha Acevedo MD EUCLID (PLAVIX/BRILINTA) completed 07/03 - 09/25 Griselda Mirza RN VITAMIN B12 1000 MCG ORAL TABLET EXTENDED RELEASE completed take one tab daily 11/08 - 05/15 Tanisha Acevedo MD ASPIRIN 81 MG ORAL TABLET completed ONE TAB. DAILY 05/14 - 05/29 Krysta Johnson RN REPATHA 140 MG/ML SUBCUTANEOUS SOLUTION PREFILLED SYRINGE completed one injection every two weeks - 10/17 Krysta Strong RN Insurance requires this medication over Praluent COUMADIN 3 MG ORAL TABLET completed ud - 05/14 Diane Joshua COUMADIN 3 MG ORAL TABLET completed Take 1 daily - 07/02 Griselda Mirza RN RANITIDINE HCL 150 MG ORAL TABLET completed ONE TAB DAILY NEEDED - 10/28 Tanisha Acevedo MD EUCLID (PLAVIX/BRILINTA) completed 06/20 - 05/14 Diane Joshua WELCHOL 625 MG ORAL TABLET completed 3 TABS TWICE DAILY 06/08 - 12/25 Jenifer Albrecht PLAVIX 75 MG ORAL TABLET completed ONE TAB. DAILY - 06/20 Griselda Mirza RN EFFIENT 10 MG ORAL TABLET completed one tablet daily 06/05 - 06/06 Cuate Lynne RN WELCHOL PACKET completed Mix 1 pack in 4-8 oz. of water, fruit juice, or diet soft drink once daily. Take with a meal. - 12/25 Lauren Palomares COZAAR 100 MG ORAL TABLET completed ONE TAB. DAILY 12/08 - 06/30 Patricia Patterson ASPIRIN 81 MG ORAL TABLET completed ONE TAB. DAILY 12/08 - 06/20 Griselda Mirza RN PLAVIX 75 MG ORAL TABLET completed 1 tab daily - Cuate Lynne RN SOCIAL HISTORY Date Observation Value Provider drug use no Tanisha Mora alcohol use, average drinks per day social Tanisha Acevedo MD alcohol use yes Tanisha Mora passive cigarette sm jackeline exposure no Tanisha Acevedo MD year patient quit cigar use 2010 Tanisha Acevedo MD cigar use yes Tanisha Mora smoking, year quit 2011 Tanisha yanes MD smoking history, tot al pack/year cigars Tanisha Acevedo MD cigarette use yes Tanisha Acevedo MD smoking status Former smoker Tanisha tang MD drug use no Tanisha Serota Brandy Mora alcohol use, average drinks per day social Tanisha Acevedo MD alcohol use yes Tanisha Chaveza Brandy Mora passive cigarette sm jackeline exposure no Tanisha Acevedo MD year patient quit cigar use 2010 Tanisha Acevedo MD cigar use yes Tanisha Mora smoking, year quit 2011 Tanisha yanes MD smoking history, tot al pack/year cigars Tanisha Acevedo MD cigarette use yes Tanisha Acevedo MD smoking status Former smoker Tanisha tang MD caffeine use, averag e drinks per day yes Liz Julio Cesar passive cigarette sm jackeline exposure no Liz Julio Cesar year patient quit cigar use 2010 Liz Julio Cesar cigar use yes Liz Julio Cesar smoking, year quit 2011 Liz Will iams smoking history, tot al pack/year cigars Liz Julio Cesar cigarette use yes Ilz Julio Cesar smoking status Former smoker Liz reilly smoking status Former smoker Corby Franco MD social history reviewed E&M revi ewed - no changes required Corby Franco MD caffeine use, averag e drinks per day yes Jessica Adams passive cigarette sm jackeline exposure no Jessica Adams year patient quit cigar use 2010 Jessica Adams cigar use yes Jessica mora smoking, year quit 2011 Jessica Adams smoking history, tot al pack/year cigars Jessica Adams cigarette use yes Jessica Page nd social history reviewed E&M revi ewed - no changes required Tanisha Acevedo MD social history reviewed E&M revi ewed - no changes required Tanisha Acevedo MD social history E&M Marital Statu s: Sravan pike is a former smoker. P shahzad has been counseled to quit. 9 years cigarrette history. Quit three years ago. S moking History: Sravan pike is a former smoker. Tanisha Acevedo MD social history reviewed E&M revi ewed - no changes required Tanisha Acevedo MD handedness R Handed Tanisha Mora year patient quit cigar use 2010 Consuelo Durhamr BI LEAD cigar use yes Consuelo uDrham r BI LEAD smoking status Former smoker Consuelo Ortiz kiaraer BI LEAD social history E&M Marital Statu s: Sravan pike is a former smoker. Sravan pike has been counseled to quit. 9 years cigarrette history. Quit three years ago. Smoking History: Sravan pike is a former smoker. Tanisha Acevedo MD social history reviewed E&M revi ewed - no changes required Tanisha Acevedo MD cigar use yes Hiwot Aguilera smoking status Former smoker Hiwot Sahvonne huang social history E&M Marital Statu s: Sravan pike is a former smoker. Sravan pike has been counseled to quit. 9 years cigarrette history. Quit three years ago. Smoking History: Sravan pike is a former smoker. Tanisha Acevedo MD social history reviewed E&M revi ewed - no changes required Tanisha Acevedo MD quit smoking, stage quit Tanisha lopez MD caffeine use, averag e drinks per day yes Chastity Mary Grace passive cigarette sm jackeline exposure no Chastity Mary Grace year patient quit cigar use 2011 Chastity Mary Grace cigar use yes Chastity Mary Grace smoking, year quit 2011 Chastity Mary Grace smoking history, tot al pack/year cigars Chastity Mary Grace cigarette use yes Chastity Mary Grace smoking status Former smoker Chastity Hog ue social history E&M Marital Statu s: Sravan pike is a former smoker. Sravan pike has been counseled to quit. 9 years cigarrette history. Quit three years ago. Smoking History: Sravan pike is a former smoker. Tanisha Acevedo MD social history reviewed E&M revi ewed - no changes required Tanisha Acevedo MD caffeine use, averag e drinks per day yes Nano Kayer passive cigarette sm jackeline exposure no Nano Ottoniel year patient quit cigar use 2011 Nano Mendyelder cigar use yes Nano Cervantes lder smoking, year quit 2011 Nano Gomez enenfelder smoking history, tot al pack/year cigars Nano Kayer cigarette use yes Nano mercado smoking status Former smoker Nano deelder social history E&M Marital Statu s: Sravan pike is a former smoker. Sravan pike has been counseled to quit. 9 years cigarrette history. Quit three years ago. Smoking History: Sravan pike is a former smoker. Tanisha Acevedo MD social history reviewed E&M revi ewed - no changes required Tanisha Acevedo MD caffeine use, averag e drinks per day yes Nano Kayer passive cigarette sm jackeline exposure no Nano Alcazar year patient quit cigar use 2011 Nano Alcazar cigar use yes Nano Cervantes lder smoking, year quit 2011 Nano calixtofelder smoking history, tot al pack/year cigars Nano Kayer cigarette use yes Nano mercado smoking status Former smoker Nano deelder social history E&M Marital Statu s: Sravan pike is a former smoker. Sravan pike has been counseled to quit. 9 years cigarrette history. Quit three years ago. Smoking History: Sravan pike is a former smoker. Tanisha Acevedo MD social history reviewed E&M revi ewed - no changes required Tanisha Acevedo MD caffeine use, averag e drinks per day yes Tonsha Patel passive cigarette sm jackeline exposure no [facility]ha [place] [facility] smoking, year quit 2011 Tonsha Mo ss smoking history, tot al pack/year cigars [facility] cigarette use yes [facility] smoking status Former smoker [facility] quit smoking, stage relapse Tanisha lopez MD social history E&M Marital Statu s: Sravan pike is a former smoker. Sravan pike has been counseled to quit. 9 years cigarrette history. Quit three years ago. Smoking History: Sravan pike is a former smoker. Tanisha Acevedo MD social history reviewed E&M revi ewed - no changes required Tanisha Acevedo MD caffeine use, averag e drinks per day yes [facility] passive cigarette sm jackeline exposure no [facility] year patient quit cigar use 2011 [facility] cigar use yes [facility] smoking, year quit 2011 Tonsha Mo ss smoking history, tot al pack/year cigars [facility] cigarette use yes [facility] smoking status Former smoker [facility] social history reviewed E&M revi ewed - no changes required Leni Sen RN caffeine use, averag e drinks per day yes Cammie Slusser passive cigarette sm jackeline exposure no Cammie Slusser year patient quit cigar use 2011 Cammie Slusser cigar use yes Cammie Slusser smoking, year quit 2011 Cammie Sl usser smoking history, tot al pack/year cigars Cammie Slusser cigarette use yes Cammie Slusser smoking status Former smoker Cammie Sluss er handedness R Handed Tanisha Mora social history E&M Marital Statu s: Sravan pike is a former smoker. Sravan pike has been counseled to quit. 9 years cigarrette history. Quit three years ago. Smoking History: Sravan pike currently smokes every day. Sravan pike has been counseled to quit. Tanisha Acevedo MD social history reviewed E&M revi ewed - no changes required Tanisha Acevedo MD smoking/tobacco cess ation, patient education and counseling yes Tanisha Acevedo MD smoking status Current every day smoker Tanya Brody social history E&M Marital Statu s: Sravan pike is a former smoker. Sravan pike has been counseled to quit. 9 years cigarrette history. Quit three years ago. Smoking History: Sravan pike is a former smoker. Tanisha Acevedo MD social history reviewed E&M revi ewed - no changes required Tanisha Acevedo MD alcohol use, average drinks per day social Micky Chapman alcohol use yes Micky leigh caffeine use, averag e drinks per day yes Micky Chapman drug use no Micky Espinoza reese passive cigarette sm jackeline exposure no MickyNayla Chapman year patient quit cigar use 2011 MickyNayla Chapman cigar use yes Micky Espinoza modestotimothy smoking, year quit 2011 MickyNayla Chapman smoking history, tot al pack/year cigars Micky Chapman cigarette use yes Micky Jeff kel smoking status Former smoker Micky Maya quit smoking, stage quit Tanisha lopez MD social history E&M Marital Statu s: Sravan pike is a former smoker. Sravan pike has been counseled to quit. 9 years cigarrette history. Quit three years ago. Smoking History: Sravan pike is a former smoker. Tanisha Acevedo MD social history reviewed E&M revi ewed - no changes required Tanisha Acevedo MD alcohol use, average drinks per day social Micky Chapman alcohol use yes Micky leigh caffeine use, averag e drinks per day yes Micky Chapman drug use no Micky leigh passive cigarette sm jackeline exposure no Micky Chapman year patient quit cigar use 2011 Micky Chapman cigar use yes Micky leigh smoking, year quit 2011 Micky Chapman smoking history, tot al pack/year cigars Micky Chapman cigarette use yes Micky begum smoking status Former smoker Micky Maya social history reviewed E&M revi ewed - no changes required Promise Kauffman MD alcohol use, average drinks per day social Leni Sen RN alcohol use yes Leni gutierrez RN caffeine use, averag e drinks per day yes Leni Sen RN drug use no Leni gutierrez RN smoking/tobacco cess ation, patient education and counseling yes Leni Sen RN passive cigarette sm jackeline exposure no Leni Sen RN year patient quit cigar use 2011 Leni Sen RN cigar use yes Leni gutierrez RN smoking, year quit 2011 Leni Hernandez RN smoking history, tot al pack/year cigars Leni Sen RN cigarette use yes Leni aguirre RN smoking status Former smoker Leni saeed RN social history reviewed E&M revi ewed - no changes required Leni Sen RN number of grandchildren Corby lyonsmaurice Marni social history reviewed E&M revi ewed - no changes required Mateo Agustin MD year patient quit cigar use 2011 Diane Joshua cigar use yes Diane Joshua alcohol use, average drinks per day social Diane Joshua alcohol use yes Diane Joshua caffeine use, averag e drinks per day yes Diane Joshua drug use no Diane oJshua passive cigarette sm jackeline exposure no Diane Joshua smoking, year quit 2011 Diane Nava cCann smoking history, tot al pack/year cigars Diane Joshua smoking status Former smoker Diane Mast kim social history reviewed E&M revi ewed - no changes required Mateo Agustin MD alcohol use, average drinks per day social Mateo Agustin MD alcohol use yes Mateo Mora caffeine use, averag e drinks per day yes Mateo Agustin MD drug use no Mateo Mora smoking/tobacco cess ation, patient education and counseling yes Mateo Agustin MD passive cigarette sm jackeline exposure no Mateo Agustin MD smoking, year quit 2011 Mateo nam MD smoking history, tot al pack/year cigars Mateo Agustin MD cigarette use yes Mateo Agustin MD smoking status Former smoker Mateo mora MD social history E&M Marital Statu s: Sravan pike is a former smoker. Smoking History: Sravan pike is a former smoker. Sravan pike has been counseled to quit. 9 years cigarrette history. Quit three years ago. Mateo Agustin MD cigarette use yes Corby Franco MD social history E&M Marital Statu s: Sravan pike is a former smoker. Smoking History: Sravan pike is a former smoker. Sravan pike has been counseled to quit. Corby Franco MD social history reviewed E&M revi ewed - no changes required Corby Franco MD alcohol use, average drinks per day social Karoline Bello caffeine use, averag e drinks per day yes Karoline Bello drug use no Karoline Bello passive cigarette sm jackeline exposure no Karoline Bello smoking/tobacco cess ation, patient education and counseling yes Karoline Bello smoking status Former smoker Corby Franco MD quit smoking, stage quit Tanisha lopez MD social history reviewed E&M revi ewed - no changes required Tanisha Acevedo MD smoking/tobacco cess ation, patient education and counseling yes Tanisha Acevedo MD alcohol use, average drinks per day social Diane Rubinann caffeine use, averag e drinks per day yes Diane Rubinann drug use no Diane Joshua passive cigarette sm jackeline exposure no Diane Rubinann smoking status Former smoker Diane alvarez smoking status Former smoker Corby Franco MD social history reviewed E&M revi ewed - no changes required Corby Franco MD alcohol use, average drinks per day social Diane caffeine use, averag e drinks per day yes Diane Rodolfo drug use no Diane Reynolds passive cigarette sm jackeline exposure no Diane social history reviewed E&M reviewed Corby Franco MD quit smoking, stage quit Tanisha lopez MD social history reviewed E&M reviewed Cuate Lynne RN social history reviewed E&M reviewed Corby Franco MD quit smoking, stage quit Tanisha lopez MD social history reviewed E&M reviewed Cuate Lynne RN social history E&M Marital Status: Andrews mora Tanisha Acevedo MD drug use no Cuate Lynne RN passive cigarette sm jackeline exposure no Cuate Lynne RN smoking history, tot al pack/year cigars Cuate Lynne RN smoking, year quit 2011 Cuate reilly RN caffeine use, averag e drinks per day yes Cuate Lynne RN alcohol use, average drinks per day social Cuate Lynne RN smoking status former smoker Cuate Lynne R N social history reviewed E&M reviewed Cuate Lynne RN FUNCTIONAL STATUS Date Observation Value Provider HRA, CV Assess/Plan, Angina (inactive) Management Plan continue current therapy Tanisha Acevedo MD HRA, CV Assess/Plan, Angina (inactive) Management Plan antianginal therapy Corby Franco MD HRA, CV Assess/Plan, Angina (inactive) Management Plan continue current therapy Corby Franco MD HRA, CV Assess/Plan, Angina (inactive) Management Plan continue current therapy Tanisha Acevedo MD HRA, CV Assess/Plan, Angina (inactive) Management Plan continue current therapy Tanisha Acevedo MD HRA, CV Assess/Plan, Angina (inactive) Management Plan continue current therapy Tanisha Acevedo MD HRA, CV Assess/Plan, Angina (inactive) Management Plan continue current therapy Consuelo Aleman NP HRA, CV Assess/Plan, Angina (inactive) Management Plan continue current therapy Tanisha Acevedo MD HRA, CV Assess/Plan, Angina (inactive) Management Plan continue current therapy Tanisha Acevedo MD HRA, CV Assess/Plan, Angina (inactive) Management Plan continue current therapy Tanisha Acevedo MD HRA, CV Assess/Plan, Angina (inactive) Management Plan continue current therapy Tanisha Acevedo MD HRA, CV Assess/Plan, Angina (inactive) Management Plan continue current therapy Tanisha Acevedo MD HRA, CV Assess/Plan, Angina (inactive) Management Plan continue current therapy Tanisha Acevedo MD MENTAL STATUS Date Observation Value Provider assessment of judgme nt and insight E&M Alert and oriented to time, place and person. Mood and affect are normal. Corby Franco MD assessment of judgme nt and insight E&M Alert and oriented to time, place and person. Mood and affect are normal. Azeb Gaspar NP assessment of judgme nt and insight E&M Alert and oriented to time, place and person. Mood and affect are normal. Cuate Lynne RN assessment of judgme nt and insight E&M Alert and oriented to time, place and person. Mood and affect are normal. Corby Franco MD assessment of judgme nt and insight E&M Alert and oriented to time, place and person. Mood and affect are normal. Cuate Lynne RN assessment of judgme nt and insight E&M Alert and oriented to time, place and person. Mood and affect are normal. Cuate Lynne RN FAMILY HISTORY Family Member Condition Father Family History of CV A or Stroke: Mother Family History of Hy pertension: Mother Family History of Hy perlipidemia: Mother Family History of Co ronary Artery Disease: Mother Family History of Hy pertension: INSURANCE PROVIDERS Payer name Policy type / Coverage type [place] Medicare [id number] [facility] Couple insurance [employer] [id number] ADVANCE DIRECTIVES Name Date DISCUSSED - NO DECISION MADE TREATMENT PLAN Date Name Performer [id number],C,check lipids Corby Franco MD [id number],C, He has had pain in his left popliteal lateral area intermittently. His arterial doppler was fine but hsi cta showed a vascular stent is noted to extend from the superficial femoral artery through the popliteal artery. 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 could be calcified wall of the anueurysm or calcified hematoma h e is not very symotomatic and will leave this alone without further testing Corby Franco MD [id number],C, H is updated medication list for this problem includes: Chlorthalidone 25 Mg Tablet (Chlorthalidone) ..... Take 1 tablet by mouth once a day take 1 tablet by mouth once daily Losartan 100 Mg Tablet (Losartan) ..... Take 1 tablet by mouth once daily Aspirin 81 Mg Tablet,delayed Release (dr/ec) (Aspirin) ..... 1 tablet by mouth once a day BP today: 136/74 P rior BP: 137/90 (11/07/2022) Prior 10 Yr Risk Heart Disease: Not enough information (07/26/2013) Labs Reviewed: C reat: 0.73 (07/19/2020) C hol: 118 (07/28/2022) HDL: 49 (07/28/2022) LDL: 48 MG/DL (CALC) (07/28/2022) T (07/28/2022) Corby Franco MD [id number],C,C HOL: 118 (07/28/2022) LDL: 48 MG/DL (CALC) (07/28/2022) HDL: 49 (07/28/2022) T (07/28/2022) O n Leqvio Corby Franco MD [id number],C, This is a right-handed patient who presents for PAD follow up and has had prior interventions in left LE. He has had pain in his left popliteal area for last 2 weeks. He has burning pain in the left foot for about 2 years. He walks without claudication. He is doing a lot of work and is climbing ladders as he is helping his father in law move. W ill check arterial dopplers his dopploer showed patent stents but has a 3 cm x 3 cm mass in the lateral polpiteal fossa and will check a ct scan no contrast Corby Franco MD [id number],S, n m pro Tanisha Acevedo MD [id number],S, Tanisha tang MD [id number],S, d id nt want qusmai D ID HOT LIEK CONRAVE Tanisha Acevedo MD [id number],S, b 12 on rx, rpr neg Tanisha Acevedo MD [id number],S, c euvas said all ok and no fu needed r [facility] will not take his blood, nml iron n o =iron overlad Tanisha Acevedo MD [id number],S, P SAUL LAD AND PROX CX AND MID CX AND SECOND OM ALL STENTED FOR COMPLETE Tanisha Acevedo MD [id number],S, Tanisha Serot kitty VELEZ [id number],S, b el;owe knee, pop stent looksgood by anion 2018 Tanisha Acevedo MD [id number],S,n eg egfr and uracr E NG A1C n eg iron N EG [facility] LE, [facility] [id number],S, 6 .1 Tanisha Acevedo MD [id number],S, H is updated medication list for this problem includes: Gemfibrozil 600 Mg Tablet (Gemfibrozil) ..... 1 tablet by mouth twice a day Tanisha Acevedo MD [id number],C,6.1 Tanisha Steen rota [id number],B, Tanisha Serot a [id number],B, Tanisha Serot a [id number],B, Tanisha Serot a [id number],B, Tanisha Serot a [id number],S, b 12 on rx, rpr neg Tanisha Acevedo MD [id number],C, E NG A1C n eg iron N EG US LE, NMLTSH Tanisha Acevedo MD [id number],S, Tanisha Serot a [id number],S, Tanisha Serot a [id number],S, m oderate Tanisha Acevedo MD [id number],S, P SAUL LAD AND PROX CX AND MID CX AND SECOND OM ALL STENTED FOR COMPLETE Tanisha Acevedo MD [id number],S,nm pro Tanisha Acevedo MD [id number],C,moderate Lauren Acevedo MD [id number],B,t [place] he may have curfe it with wt loos Tanisha Acevedo MD [id number],B, H is updated medication list for this problem includes: Chlorthalidone 25 Mg Tablet (Chlorthalidone) ..... Take 1 tablet by mouth once daily Losartan 100 Mg Tablet (Losartan) ..... Take 1 tablet by mouth once daily Aspirin 81 Mg Tablet,delayed Release (dr/ec) (Aspirin) ..... 1 tablet by mouth once a day BP today: 120/70 P rior BP: 155/90 (07/23/2021) Prior 10 Yr Risk Heart Disease: Not enough information (07/26/2013) Labs Reviewed: C reat: 0.73 (07/19/2020) C hol: 183 (07/19/2020) HDL: 42 (07/19/2020) Tanisha Acevedo MD [id number],S, Tanisha tang MD [id number],S, c curt said all ok and no fu needed r [facility] will not take his blood, nml iron n o =iron overlad Tanisha Acevedo MD [id number],B, Tanisha tang MD [id number],S,awitin lequif noemi Tanisha Acevedo MD [id number],S, Tanisha tang MD [id number],S, b 12 on rx, rpr neg Tanisha Acevedo MD [id number],B, Tanisha tang MD [id number],S, P SAUL LAD AND PROX CX AND MID CX AND SECOND OM ALL STENTED FOR COMPLETE Tanisha Acevedo MD [id number],S, n ot on echo, 2 plus on cath Tanisha Serota [id number],S, Tanisha Serot a [id number],B, Tanisha Serot a [id number],S, Tanisha Serot a [id number],S, b 12 on rx, rpr neg Tanisha Serotkitty VELEZ [id number],S,not on echo, 2 plus on cath Tanisha Serotkitty VELEZ [id number],S, Tanisha Serot a [id number],S, Tanisha Serot a [id number],S, b el;owe knee, pop stent looksgood by anion 2018 Tanisha Acevedo MD [id number],B, P SAUL LAD AND PROX CX AND MID CX AND SECOND OM ALL STENTED FOR COMPLETE Tanisha Serotkitty VELEZ [id number],W,DOSE NOT WANT NEW RX Tanisha Serotkitty VELEZ [id number],S, Tanisha Serot a [id number],W, Tanisha Serot a [id number],S, b 12 on rx, rpr neg Tanisha Serotkitty VELEZ [id number],S,not on echo, 2 plus on cath Tanisha Serotkitty VELEZ [id number],S, Tanisha Serot a [id number],S, Tanisha Serot a [id number],S, b el;owe knee, pop stent looksgood by anion 2018 Tanisha Serotkitty VELEZ [id number],B, P SAUL LAD AND PROX CX AND MID CX AND SECOND OM ALL STENTED FOR COMPLETE Tanisha Serotkitty VELEZ [id number],C,B P today 155/90. has RPM at home, has been running 120-130 Consuelo Aleman OTF [id number],S, Consuelo su BI LEAD [id number],C, m outh pieces dose not fit antmoe Consuelo Aleman OTF [id number],C, P SAUL LAD AND PROX CX AND MID CX AND SECOND OM ALL STENTED FOR COMPLETE Consuelo Aleman BI LEAD [id number],C,E CHO 07/2020 EF 65%, aortic valve calcification without stenosis. Velocities, as well as gradients across the aortic valve are normal. No evidence of aortic insufficiency. Consuelo Aleman OTF [id number],S,kitty godinezgery to statins His updated medication list for this problem includes: Ezetimibe 10 Mg Tablet (Ezetimibe) ..... Take 1 tablet by mouth every day Consuelo Aleman OTF [id number],S, P SAUL LAD AND PROX CX AND MID CX AND SECOND OM ALL STENTED FOR COMPLETE Tanisha Acevedo MD [id number],BTanisha MD [id number],STanisha MD [id number],B,c euvas said all ok and no fu needed r edcross will not take his blood, nml iron n o =iron overlad Tanisha Acevedo MD [id number],S, Tanisha tang MD [id number],S, n eg echo and pro E NG A1C n eg iron N EG US LE, NMLTSH Tanisha Acevedo MD [id number],S, m outh pieces dose not fit antmoe Tanisha Acevedo MD [id number],B, b el;owe knee, pop stent looksgood by anion 2018 Tanisha Acevedo MD [id number],S, b 12 on rx, rpr neg Tanisha Acevedo MD [id number],S,not on echo 2 plus by cath Tanisha Acevedo MD [id number],S, Tanisha tang MD [id number],S, H is updated medication list for this problem includes: Losartan 100 Mg Tablet (Losartan) ..... Take 1 tablet by mouth once a day Aspirin 81 Mg Tablet,delayed Release (dr/ec) (Aspirin) ..... 1 tablet by mouth once a day Chlorthalidone 25 Mg Tablet (Chlorthalidone) ..... Once a day BP today: 150/80 P rior BP: 161/93 (01/15/2021) Prior 10 Yr Risk Heart Disease: Not enough information (07/26/2013) Labs Reviewed: C reat: 0.73 (07/19/2020) C hol: 183 (07/19/2020) HDL: 42 (07/19/2020) Tanisha Acevedo MD [id number],B,c curt said all ok and no fu needed r edcross will not take his blood, nml iron n o =iron overlad Tanisha Acevedo MD [id number],S,better at aurelia e Tanisha Acevedo MD [id number],S, Tanisha tang MD [id number],S, Tanisha tang MD [id number],S, m outh pieces dose not fit antmhmoe Tanisha Acevedo MD [id number],S, b 12 on rx, rpr neg Tanisha Acevedo MD [id number],B, Tanisha tang MD [id number],S, Tanisha tang MD [id number],B, P SAUL LAD AND PROX CX AND MID CX AND SECOND OM ALL STENTED FOR COMPLETE Tanisha Acevedo MD [id number],S, Tanisha tang MD [id number],S, Tainsha tang MD [id number],S, Tanisha tang MD [id number],C,r edcross will not take his blood, nml iron n o =iron overlad Tanisha Acevedo MD Cardiology:mod 1.1 pk 39 Tanisha Acevedo MD Cardiology Tanisha Acevedo MD Cardiology: neg aibi c ould be calcified wall of the anueurysm or calcified hematoma h e is not very symotomatic and will leave this alone without further testing Tanisha Acevedo MD Cardiology: N EG US LE, NMLTSH Tanisha Acevedo MD Cardiology: m oderate d oes not want rx Tanisha Acevedo MD Cardiology Tanisha Acevedo MD Cardiology Tanisha Acevedo MD Cardiology: b 12 on rx, rpr neg Tanisha Acevedo MD Cardiology:ef 65 n m pro Tanisha Acevedo MD Cardiology Tanisha Acevedo MD Cardiology: c euvas said all ok and no fu needed r edcross will not take his blood, nml iron n o =iron overlad Tanisha Acevedo MD Cardiology:neg pet 2 4 P SAUL LAD AND PROX CX AND MID CX AND SECOND OM ALL STENTED FOR COMPLETE Tanisha Acevedo MD Cardiology: 7 Tainsha Acevedo MD :7 Tanisha Acevedo MD Cardiology: m oderate d oes not want rx Tanisha Acevedo MD Cardiology: n m pro Tanisha Acevedo MD Cardiology Tanisha Acevedo MD Cardiology Tanisha Acevedo MD Cardiology Tanisha Acevedo MD Cardiology: c curt said all ok and no fu needed r edcross will not take his blood, nml iron n o =iron overlad Tanisha Acevedo MD Cardiology: neg aibi c ould be calcified wall of the anueurysm or calcified hematoma h e is not very symotomatic and will leave this alone without further testing Tanisah Acevedo MD Cardiology: n eg egfr and uracr E NG A1C n eg iron N EG US LE, NMLTSH Tanisha Acevedo MD Cardiology Tanisha Acevedo MD Cardiology: P SAUL LAD AND PROX CX AND MID CX AND SECOND OM ALL STENTED FOR COMPLETE Tanisha Acevedo MD Cardiology Tanisha Acevedo MD Cardiology: 6 .1 Tanisha Acevedo MD Cardiology:check lipids Corby Franco MD Cardiology: He has h ad pain in his left popliteal lateral area intermittently. His arterial doppler was fine but hsi cta showed a vascular stent is noted to extend from the superficial femoral artery through the popliteal artery. 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 c ould be calcified wall of the anueurysm or calcified hematoma h e is not very symotomatic and will leave this alone without further testing Corby Franco MD Cardiology: H is updated medication list for this problem includes: Chlorthalidone 25 Mg Tablet (Chlorthalidone) ..... Take 1 tablet by mouth once a day take 1 tablet by mouth once daily Losartan 100 Mg Tablet (Losartan) ..... Take 1 tablet by mouth once daily Aspirin 81 Mg Tablet,delayed Release (dr/ec) (Aspirin) ..... 1 tablet by mouth once a day BP today: 136/74 P rior BP: 137/90 (11/07/2022) Prior 10 Yr Risk Heart Disease: Not enough information (07/26/2013) Labs Reviewed: C reat: 0.73 (07/19/2020) C hol: 118 (07/28/2022) HDL: 49 (07/28/2022) LDL: 48 MG/DL (CALC) (07/28/2022) T (07/28/2022) Corby Franco MD Cardiology:CHOL: 118 (07/28/2022) LDL: 48 MG/DL (CALC) (07/28/2022) HDL: 49 (07/28/2022) T (07/28/2022) O n Leqvio Corby Franco MD Cardiology: This is a right-handed patient who presents for PAD follow up and has had prior interventions in left LE. He has had pain in his left popliteal area for last 2 weeks. He has burning pain in the left foot for about 2 years. He walks without claudication. He is doing a lot of work and is climbing ladders as he is helping his father in law move. W ill check arterial dopplers h is dopploer showed patent stents but has a 3 cm x 3 cm mass in the lateral polpiteal fossa and will check a ct scan no contrast Corby Franco MD TeleHealth: n m pro Tanisha Acevedo MD TeleHealth Tanisha Acevedo MD TeleHealth: d id nt want qusmai D ID HOT LIEK CONRAVE Tanisha Acevedo MD TeleHealth: b 12 on rx, rpr neg Tanisha Aceevdo MD TeleHealth: c euvas said all ok and no fu needed r edcross will not take his blood, nml iron n o =iron overlad Tanisha Acevedo MD TeleHealth: P SAUL LAD AND PROX CX AND MID CX AND SECOND OM ALL STENTED FOR COMPLETE Tanisha Acevedo MD TeleHealth Tanisha Acevedo MD TeleHealth: b el;owe knee, pop stent looksgood by anion 2019 Tanisha Acevedo MD TeleHealth:neg egfr and uracr E NG A1C n eg iron N EG US LE, NMLTSH Tanisha Acevedo MD TeleHealth: 6 .1 Tanisha Acevedo MD TeleHealth: H is updated medication list for this problem includes: Gemfibrozil 600 Mg Tablet (Gemfibrozil) ..... 1 tablet by mouth twice a day Tanisha Acevedo MD :6.1 Tanisha Acevedo MD TeleHealth Tanisha Acevedo MD TeleHealth Tanisha Acevedo MD TeleHealth Tanisha Acevedo MD TeleHealth Tanisha Acevedo MD TeleHealth: b 12 on rx, rpr neg Tanisha Acevedo MD TeleHealth: E NG A1C n eg iron N EG US LE, NMLTSH Tanisha Acevedo MD TeleHealth Tanisha Acevedo MD TeleHealth Tanisha Acevedo MD TeleHealth: m oderate Tanisha Acevedo MD TeleHealth: P SAUL LAD AND PROX CX AND MID CX AND SECOND OM ALL STENTED FOR COMPLETE Tanisha Acevedo MD TeleHealth:nm pro Tanisha Acevedo MD :moderate Tanisha Acevedo MD TeleHealth:think he may have cur fe it with wt loos Tanisha Acevedo MD TeleHealth: H is updated medication list for this problem includes: Chlorthalidone 25 Mg Tablet (Chlorthalidone) ..... Take 1 tablet by mouth once daily Losartan 100 Mg Tablet (Losartan) ..... Take 1 tablet by mouth once daily Aspirin 81 Mg Tablet,delayed Release (dr/ec) (Aspirin) ..... 1 tablet by mouth once a day BP today: 120/70 P rior BP: 155/90 (07/23/2021) & #13;Prior 10 Yr Risk Heart Disease: Not enough information (07/26/2013) Labs Reviewed: C reat: 0.73 (07/19/2020) C hol: 183 (07/19/2020) HDL: 42 (07/19/2020) Tanisha Acevedo MD TeleHealth Tanisha Acevedo MD TeleHealth: tanya elias said all ok and no fu needed r dallinross will not take his blood, nml iron n o =iron overlad Tanisha Acevedo MD TeleHealth Tanisha Acevedo MD TeleHealth:neetu Acevedo MD TeleHealth Tanisha Acevedo MD TeleHealth: b 12 on rx, rpr neg Tanisha Acevedo MD TeleHealth Tanisha Acevedo MD TeleHealth: P SAUL LAD AND PROX CX AND MID CX AND SECOND OM ALL STENTED FOR COMPLETE Tanihsa Acevedo MD TeleHealth: n ot on echo, 2 plus on cath Tanisha Acevedo MD TeleHealth Tanisha Acevedo MD TeleHealth Tanisha Acevedo MD TeleHealth;cehck back later Lauren Acevedo MD TeleHealth;cehck amber k later: b 12 on rx, rpr neg Tanisha Acevedo MD TeleHealth;cehck amber k later:not on echo, 2 plus on cath Tanisha Acevedo MD TeleHealth;cehck back later Lauren Acevedo MD TeleHealth;cehck back later Lauren Acevedo MD TeleHealth;cehck amber k later: b el;owe knee, pop stent looksgood by anion 2019 Tanisha Acevedo MD TeleHealth;cehck amber k later: P SAUL LAD AND PROX CX AND MID CX AND SECOND OM ALL STENTED FOR COMPLETE Tanisha Acevedo MD TeleHealth;cehck back later:DOSE NOT WANT NEW RX Tanisha Acevedo MD TeleHealth;cehck back later Lauren Acevedo MD TeleHealth;cehck back later Lauren Acevedo MD TeleHealth;cehck amber k later: b 12 on rx, rpr neg Tanisha Acevedo MD TeleHealth;cehck amber k later:not on echo, 2 plus on cath Tanisha Acevedo MD TeleHealth;cehck back later Lauren Acevedo MD TeleHealth;cehck back later Lauren Acevedo MD TeleHealth;cek amber k later: b el;owe knee, pop stent looksgood by anion 2018 Tanisha Acevedo MD TeleHealth;cehck amber k later: P SAUL LAD AND PROX CX AND MID CX AND SECOND OM ALL STENTED FOR COMPLETE Tanisha Acevedo MD Cardiology:BP today 155/90. has RPM at home, has been running 120-130 Consuelo Aleman NP Cardiology Consuelo Aleman NP Cardiology: m outh pieces dose not fit antmoe Consuelo Aleman NP Cardiology: P SAUL LAD AND PROX CX AND MID CX AND SECOND OM ALL STENTED FOR COMPLETE Consuelo Aleman NP Cardiology:ECHO 07/20 20 EF 65%, aortic valve calcification without stenosis. Velocities, as well as gradients across the aortic valve are normal. No evidence of aortic insufficiency. Consuelo Aleman NP Cardiology:allgery t o statins His updated medication list for this problem includes: Ezetimibe 10 Mg Tablet (Ezetimibe) ..... Take 1 tablet by mouth every day Consuelo Aleman NP Cardiology: P SAUL LAD AND PROX CX AND MID CX AND SECOND OM ALL STENTED FOR COMPLETE Tanisha Acevedo MD Cardiology Tanisha Acevedo MD Cardiology Tanisha Acevedo MD Cardiology:ceuvas sa id all ok and no fu needed r edcross will not take his blood, nml iron n o =iron overlad Tanisha Acevedo MD Cardiology Tanisha Acevedo MD Cardiology: n eg echo and pro E NG A1C n eg iron N EG US LE, NMLTSH Tanisha Acevedo MD Cardiology: m outh pieces dose not fit ysabeleros Acevedo MD Cardiology: b el;owe knee, pop stent looksgood by anion 2018 Tanisha Acevedo MD Cardiology: b 12 on rx, rpr neg Tanisha Acevedo MD Cardiology:not on echo 2 plus by lou Acevedo MD Cardiology Tanisha Acevedo MD Cardiology: H is updated medication list for this problem includes: Losartan 100 Mg Tablet (Losartan) ..... Take 1 tablet by mouth once a day Aspirin 81 Mg Tablet,delayed Release (dr/ec) (Aspirin) ..... 1 tablet by mouth once a day Chlorthalidone 25 Mg Tablet (Chlorthalidone) ..... Once a day BP today: 150/80 P rior BP: 161/93 (01/15/2021) Prior 10 Yr Risk Heart Disease: Not enough information (07/26/2013) Labs Reviewed: C reat: 0.73 (07/19/2020) C hol: 183 (07/19/2020) HDL: 42 (07/19/2020) Tanisha Acevedo MD Cardiology:ceuvas sa id all ok and no fu needed r edcross will not take his blood, nml iron n o =iron overlad Tanisha Acevedo MD Cardiology:better at home Tanisha Acevedo MD Cardiology Tanisha Acevedo MD Cardiology Tanisha Acevedo MD Cardiology: m outh pieces dose not fit antmhmoe Tanisha Acevedo MD Cardiology: b 12 on rx, rpr neg Tanisha Acevedo MD Cardiology Tanisha Acevedo MD Cardiology Tanisha Acevedo MD Cardiology: P SAUL LAD AND PROX CX AND MID CX AND SECOND OM ALL STENTED FOR COMPLETE Tanisha Acevedo MD Cardiology Tanisha Acevedo MD Cardiology Tanisha Acevedo MD Cardiology Tanisha Acevedo MD Cardiology:[facility] will not take his blood, nml iron n o =iron overlad Tanisha Acevedo MD Cardiology Follow up :not seen oin echo 2 puls by lou Acevedo MD Cardiology Follow up : T he following medications were removed from the medication list: Praluent 75 Mg/ml Subcutaneous Solution Auto-injector (Alirocumab) ..... One injection every two weeks. His updated medication list for this problem includes: Nexlizet 180-10 Mg Oral Tablet (Bempedoic acid-ezetimibe) ..... One tab by mouth daily C HOL: 159 (06/02/2019) HDL: 48 (06/02/2019) Tanisha Acevedo MD Cardiology Follow up Tanisha taylor MD Cardiology Follow up Tanisha taylor MD Cardiology Follow u p :mouth pieces dose not fit antmhmoe Tanisha Acevedo MD Cardiology Follow up : H is updated medication list for this problem includes: Coreg 25 Mg Oral Tablet (Carvedilol) ..... Two tabs. twice daily Chlorthalidone 25 Mg Oral Tablet (Chlorthalidone) ..... One a day Losartan Potassium 100 Mg Oral Tablet (Losartan potassium) ..... Take 1 tablet by mouth once daily Aspirin Adult Low Dose 81 Mg Oral Tablet Delayed Release (Aspirin) ..... One tab by mouth daily BP today: 136/90 P rior BP: 160/80 (05/15/2020) Prior 10 Yr Risk Heart Disease: Not enough information (07/26/2013) Labs Reviewed: C reat: 0.76 (05/16/2020) C hol: 159 (06/02/2019) HDL: 48 (06/02/2019) Tanisha Acevedo MD Cardiology Follow up : P SAUL LAD AND PROX CX AND MID CX AND SECOND OM ALL STENTED FOR COMPLETE Tanisha Acevedo MD Cardiology Follow up :to donate blood n o =iron overlad Tanisha Acevedo MD Cardiology Follow up : b 12 on rx, rpr neg Tanisha Acevedo MD Cardiology Follow up : d id nt want qusmai D ID HOT LIEK CONRAVE Tanisha Acevedo MD Cardiology Follow up :neg echo and pro E NG A1C n eg iron N EG US LE, NMLTSH Tanisha Acevedo MD Cardiology Follow up Tanisha taylor MD :b12 on rx, rpr neg Tanisha tang MD Cardiology Follow up : T he following medications were removed from the medication list: Tenormin 25 Mg Oral Tablet (Atenolol) ..... One tab. daily His updated medication list for this problem includes: Coreg 25 Mg Oral Tablet (Carvedilol) ..... Two tabs. twice daily Chlorthalidone 25 Mg Oral Tablet (Chlorthalidone) ..... One a day Losartan Potassium 100 Mg Oral Tablet (Losartan potassium) ..... Take 1 tablet by mouth once daily Aspirin Adult Low Dose 81 Mg Oral Tablet Delayed Release (Aspirin) ..... One tab by mouth daily BP today: 160/80 P rior BP: 159/91 (07/12/2019) Prior 10 Yr Risk Heart Disease: Not enough information (07/26/2013) Labs Reviewed: C reat: 0.86 (06/02/2019) C hol: 159 (06/02/2019) HDL: 48 (06/02/2019) better at home H is updated medication list for this problem includes: Tenormin 25 Mg Oral Tablet (Atenolol) ..... One tab. daily Chlorthalidone 25 Mg Oral Tablet (Chlorthalidone) ..... One a day Cozaar 100 Mg Oral Tablet (Losartan potassium) ..... One tab. daily Aspirin Adult Low Dose 81 Mg Oral Tablet Delayed Release (Aspirin) ..... One tab by mouth daily B P today: 159/91 P rior BP: 155/113 (06/01/2019) Prior 10 Yr Risk Heart Disease: Not enough information (07/26/2013) Labs Reviewed: C reat: 0.86 (06/02/2019) C hol: 159 (06/02/2019) HDL: 48 (06/02/2019) Tanisha Acevedo MD Cardiology Follow up : b el;owe knee, pop stent looksgood by anion 2018 Tanisha Acevedo MD Cardiology Follow up : t old ot donate blood . Jak2 V617F was negative and serum epo was within normal limits. Tanisha Acevedo MD Cardiology Follow up : H is updated medication list for this problem includes: Praluent 75 Mg/ml Subcutaneous Solution Auto-injector (Alirocumab) ..... One injection every two weeks. C HOL: 159 (06/02/2019) HDL: 48 (06/02/2019) Tanisha Acevedo MD Cardiology Follow up : H MOTU PEICE Tanisha Acevedo MD Cardiology Follow up Tanisha taylor MD Cardiology Follow up : b 12 oin rx Tanisha Acevedo MD Cardiology Follow up Tanisha taylor MD Cardiology Follow up : P SAUL LAD AND PROX CX AND MID CX AND SECOND OM ALL STENTED FOR COMPLETE Tanisha Acevedo MD Cardiology Follow up : 2 puls by cath Tanisha Acevedo MD Cardiology Follow up Tanisha taylor MD Cardiology Follow up Tanisha taylor MD Cardiology:did nt wa nt qusmai D ID HOT LIEK CONRAVE Tanisha Acevedo MD Cardiology: E NG A1C n eg iron N EG US LE, NMLTSH Tanisha Acevedo MD Cardiology:better at home H is updated medication list for this problem includes: Tenormin 25 Mg Oral Tablet (Atenolol) ..... One tab. daily Chlorthalidone 25 Mg Oral Tablet (Chlorthalidone) ..... One a day Cozaar 100 Mg Oral Tablet (Losartan potassium) ..... One tab. daily Aspirin Adult Low Dose 81 Mg Oral Tablet Delayed Release (Aspirin) ..... One tab by mouth daily & #13;BP today: 159/91 P rior BP: 155/113 (06/01/2019) Prior 10 Yr Risk Heart Disease: Not enough information (07/26/2013) Labs Reviewed: C reat: 0.86 (06/02/2019) C hol: 159 (06/02/2019) HDL: 48 (06/02/2019) Tanisha Acevedo MD Cardiology: t old ot donate blood . Jak2 V617F was negative and serum epo was within normal limits. Tanisha Acevedo MD Cardiology Tanisha Acevedo MD Cardiology: H is updated medication list for this problem includes: Repatha 140 Mg/ml Subcutaneous Solution Prefilled Syringe (Evolocumab) ..... One injection every two weeks Tanisha Acevedo MD Cardiology: H MOTU PEICE Tanisha Acevedo MD Cardiology:b12 oin rx Tanisha Ser cait VELEZ Cardiology: 2 puls by lou Acevedo MD Cardiology Tanisha Acevedo MD Cardiology:CANNTO AFFORD VASCAP Tanisha Acevedo MD Cardiology:PROX LAD AND PROX CX AND MID CX AND SECOND OM ALL STENTED FOR COMPLETE Tanisha Acevedo MD Cardiology;ecjhp [em domg: E NG A1C n eg iron N EG US LE, NMLTSH Tanisha Acevedo MD Cardiology;ecjhp [em domg:CHOL: 113 (04/20/2019) HDL: 43 (04/20/2019) c ant afford vascapa H is updated medication list for this problem includes: Repatha 140 Mg/ml Subcutaneous Solution Prefilled Syringe (Evolocumab) ..... One injection twice monthly Tanisha Acevedo MD Cardiology;ecjhp [em domg:bel;owe knee, pop stent looksgood by anion 2019 Tanisha Acevedo MD Cardiology;ecjhp [emdom puls by lou Acevedo MD Cardiology;ecjhp [em dom% lad and cx and 80% om, score 2100 n eg nuc 17 Tanisha Acevedo MD Cardiology:BP today: 142/84 Leni Sen RN Cardiology: This is a right-handed patient who presents with PERIPHERAL VASCULAR DISEASE EVALUATION. The patient complains of burnign in the bottom of his feet. This happens when he is walking or resting and has no relationship to activity. His elsi shows moderate arterial disease of the distal segment of the left posterior tibial artery. His sensilase shows severely reduce distal PVR's LLE with adequate perfusion for wound healing. His CTA showed moderate narrowing of the mid left superficial femoral artery. 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 Two-vessel runoff on the left with an atretic distal left posterior tibial artery. will check for venous htn due to abnl sensilase study s x either due to neuropathy or due to PT occlusion l ess likely to be pad related due to normal perfusion pressures w ill try metanx Leni Sen RN Cardiology: This is a right-handed patient who presents with PERIPHERAL VASCULAR DISEASE EVALUATION. The patient complains of burnign in the bottom of his feet. This happens when he is walking or resting and has no relationship to activity. His elsi shows moderate arterial disease of the distal segment of the left posterior tibial artery. His sensilase shows severely reduce distal PVR's LLE with adequate perfusion for wound healing. His CTA showed moderate narrowing of the mid left superficial femoral artery. 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 Two-vessel runoff on the left with an atretic distal left posterior tibial artery. Leni Sen RN Cardiology:DID HOT LIEK PRABHAKARRAMIN Acevedo MD Cardiology:HAS ASIM Acevedo MD Cardiology: t old ot donate blood . Jak2 V617F was negative and serum epo was within normal limits. Tanisha Acevedo MD Cardiology:B12 ON RX Tanisha taylor MD Cardiology: B YPASS FAILED AND THEN FRANCO STENTED POP ANERYM IN 13, HAD REPET STENT THAT WAS FLEXABLE, LAST CT 2016 ALL OPEN, elsi 18 opem Tanisha Acevedo MD Cardiology:BETTER AT HOME H is updated medication list for this problem includes: Benicar 40 Mg Oral Tablet (Olmesartan medoxomil) ..... One a day Aspirin Adult Low Dose 81 Mg Oral Tablet Delayed Release (Aspirin) ..... One tab by mouth daily Tanisha Acevedo MD Cardiology:ENG A1C n eg iron N EG N UC 12 AND 17 N EG US LE, NMLTSH Tanisha Acevedo MD Cardiology:will try dit pills Josh Acevedo MD Cardiology:will try dit pills Josh Acevedo MD Cardiology:missed a dose H is updated medication list for this problem includes: Benicar 40 Mg Oral Tablet (Olmesartan medoxomil) ..... One a day Aspirin Adult Low Dose 81 Mg Oral Tablet Delayed Release (Aspirin) ..... One tab by mouth daily Tanisha Acevedo MD Cardiology: H is updated medication list for this problem includes: Repatha 140 Mg/ml Subcutaneous Solution Prefilled Syringe (Evolocumab) ..... One injection twice monthly C HOL: 112 (08/21/2017) LDL: 44 MG/DL (CALC) (08/21/2017) HDL: 52 (08/21/2017) T (08/21/2017) Tanisha Acevedo MD Cardiology:apllanec need ajdsmte net Tanisha Acevedo MD Cardiology:told ot d krystyna blood . Jak2 V617F was negative and serum epo was within normal limits. He will have home sleep study performed. Tanisha Acevedo MD Cardiology Tanisha Acevedo MD Cardiology:neg iron N EG N UC 12 AND 17 N EG US LE, NMLTSH Tanisha Acevedo MD Cardiology: B YPASS FAILED AND THEN FRANCO STENTED POP ANERYM IN 13, HAD REPET STENT THAT WAS FLEXABLE, LAST CT 2016 ALL OPEN, elsi 18 opem Tanisha Acevedo MD Cardiology:b12 ok on rx Tanisha lopez MD Cardiology:nml pro Tanisha Acevedo MD Cardiology:doese nt want diet pi ll yet Tanisha Acevedo MD Cardiology:uslsaly ok Tanisha chavira MD Cardiology Tanisha Acevedo MD Cardiology: T he patient's erythrocytosis is likely secondary to undiagnosed sleep apnea. Jak2 V617F was negative and serum epo was within normal limits. He will have home sleep study performed. Tanisha Acevedo MD Cardiology Tanisha Acevedo MD Cardiology: B YPASS FAILED AND THEN FRANCO STENTED POP ANERYM IN 13, HAD REPET STENT THAT WAS FLEXABLE, LAST CT 2016 ALL OPEN Tanisha Acevedo MD Cardiology: N EG N UC 12 AND 17 N EG US LE, NMLTSH Tanisha Acevedo MD Cardiology:dental applice Tanisha Acevedo MD Cardiology: H is updated medication list for this problem includes: Repatha 140 Mg/ml Subcutaneous Solution Prefilled Syringe (Evolocumab) ..... One injection twice monthly C HOL: 112 (08/21/2017) LDL: 44 MG/DL (CALC) (08/21/2017) HDL: 52 (08/21/2017) T (08/21/2017) Tanisha Acevedo MD Cardiology Tanisha Acevedo MD Cardiology:HAS MOUTH PEAECE Lauren Acevedo MD Cardiology:BYPASS FA ILED AND THEN FRANCO STENTED POP ANERYM IN 13, HAD REPET STENT THAT WAS FLEXABLE, LAST CT 2016 ALL OPEN Tanisha Acevedo MD Cardiology:GOOD AT H OME H is updated medication list for this problem includes: Aspirin Adult Low Dose 81 Mg Oral Tbec (Aspirin) ..... One tab by mouth daily Cozaar 100 Mg Tabs (Losartan potassium) ..... One tab. daily BP today: 157/100 P rior BP: 118/76 (09/25/2016) Prior 10 Yr Risk Heart Disease: Not enough information (07/26/2013) Labs Reviewed: C reat: 0.85 (01/22/2015) C hol: 236 (01/22/2015) HDL: 47 (01/22/2015) LDL: 153 MG/DL (CALC) (01/22/2015) T (01/22/2015) Tanisha Acevedo MD Cardiology:NEG N UC 12 AND 17 N EG US L[place]LEY, NMLTJOSÉ LUIS Acevedo MD Cardiology:HOPING TO GET BACK ON NICK Acevedo MD Cardiology Promise Kauffman MD Cardiology Promise Kauffman MD Cardiology Promise Kauffman MD Cardiology Promise Kauffman MD Cardiology Promise Kauffman MD Cardiology Promise Kauffman MD Cardiology -ltr fxd: sharp pains to left medial knee area A BI showed patent popliteal stents but also see left popliteal anuerysm- this is unlikely as he has stent graft over aneurysm w ill check CT AIF Corby Franco MD Cardiology -ltr fxd: BP today: 140/90 P rior BP: 140/90 (07/03/2015) Leni Sen RN Cardiology -ltr fxd: 09/26/2015 LDL 80 on praluent p t reports he needs new script for praluent Leni Sen RN Cardiology -ltr fxd: sharp pains to left medial knee area A BI showed patent popliteal stents but also see left popliteal anuerysm w ill check CT AIF Leni Sen RN Cardiology: H is updated medication list for this problem includes: Cozaar 100 Mg Tabs (Losartan potassium) ..... One tab. daily BP today: 140/90 P rior BP: 158/97 (03/14/2015) P rior 10 Yr Risk Heart Disease: Not enough information (07/26/2013) Labs Reviewed: C reat: 0.85 (01/22/2015) C hol: 236 (01/22/2015) HDL: 47 (01/22/2015) LDL: 153 MG/DL (CALC) (01/22/2015) T (01/22/2015) Corby Franco MD Cardiology:He had re occluded his stent graft and this was revascularized with athretomy and then lined iwth supera stent so tthat he he would not pinch his graft when bending his knee. He is doing better and his sx in the lle have resolved and he can now bend his knee for short periods of time withotu any problems. ok to stop warfarin and go [facility] on study drug ([facility]) Corby Franco MD Hem/Onc:The patient has low Vit B12 levels. I have started him on oral supplementation. He will return in 6 months for repeat levels. Mateo Agustin MD Hem/Onc:The patient' s erythrocytosis is likely secondary to undiagnosed sleep apnea. Jak2 V617F was negative and serum epo was within normal limits. He will have home sleep study performed. Mateo Agustin MD Hem/Onc:The patient has a relative erythorcytosis with no increase in RBC mass. It is unlikely that he has polychythemia vera. However, I will check a Ken 2 V617F PCR and serum Epo. Most likely he may have sleep apnea which is causing a relative hypoxic state. I will refer him for a sleep study. Orders: J AK2 Gene, V617F Mutation, Qt (761217) E rythropoietin (EPO), Serum (511085) V itamin B12 (617340) T SH w/reflex ([id number]) Mateo Agustin MD Cardiology:12/06/2014 - total 248 T rig 466 c alculated LDL 146 Corby Franco MD Cardiology:C/o sharp cramps anterior Lt ankle and c/o feels muscle cramps Lt calf if he walks about 300 yards ambulation, his left foot feels cold and his left 1st toe numbness has worsened. Recent ELSI showed his left popliteal stent is occluded. m ay have clotted off as he has no flow when he bends his knee Corby Franco MD Cardiology faxed 12/07 1106:UP FROM ANKLE PAIN FROM TWISTING Tanisha Acevedo MD Cardiology faxed 12/07/14 1106:IRIS L TRY PRALUENT Tanisha Acevedo MD Cardiology faxed 12/07 1106:I THINK HE JUST TWISTED HIS ANKLE, WILL DO ELSI Tanisha Acevedo MD Cardiology faxed 12/07/14 1106:NEG US 14 Tanisha Acevedo MD Cardiology faxed 12/07/14 1106:BET TER AT HOME Tanisha Acevedo MD Cardiology faxed 12/07/14 1106:AV SCLEROIS Tanisha Acevedo MD :NML EF 13 AND 14 Tanisha Acevedo MD follow up:Able to wa lk 30 minutes on treadmill without claudication. S ensilase showed unchanged perfusion, lowest spp 49. Right dorsal improved from last time. Corby Franco MD follow up:Would like ly benefit from PCSK9 inhibitor when available. Corby Franco MD follow up: H is updated medication list for this problem includes: Cozaar 100 Mg Tabs (Losartan potassium) ..... One tab. daily BP today: 132/80 P rior BP: 156/87 (09/20/2013) Prior 10 Yr Risk Heart Disease: Not enough information (07/26/2013) Labs Reviewed: C reat: 0.79 (06/06/2013) C hol: 258 (12/22/2012) LDL: 157 (12/22/2012) T (12/22/2012) Corby Franco MD : B P today: 156/87 Prior BP: 156/87 (09/20/2013) C HOL: 258 (12/22/2012) LDL: 157 (12/22/2012) T (12/22/2012) Corby Franco MD :BP today: 156/87 P rior BP: 156/87 (09/20/2013) Prior 10 Yr Risk Heart Disease: Not enough information (07/26/2013) Labs Reviewed: C reat: 0.79 (06/06/2013) C hol: 258 (12/22/2012) LDL: 157 (12/22/2012) T (12/22/2012) Corby Franco MD :s/p left popliteal aneurysm thrombectomy and stent 01/2013. pain is better and his left great toe numbness is still there r ecommend Sensilase left great toe/LLE Corby Franco MD HTN clinic: H is updated medication list for this problem includes: Cozaar 100 Mg Tabs (Losartan potassium) ..... One tab. daily Patient presents for BP clinic. He states that his BPs have been relatively well controlled at home. He will continue his current medications. He will have BP at his upcoming study visit. He will follow with Dr. Acevedo as scheduled. Azeb Gaspar NP test results Tanisha Acevedo MD test results : B P today: 140/95 Prior BP: 112/78 (03/22/2013) D iscussed lifestyle modifications, diet, antacids/medications, and preventive measures. Handout provided. Tanisha Acevedo MD test results Tanisha Acevedo MD test results : H is updated medication list for this problem includes: Aspirin 81 Mg Tabs (Aspirin) ..... One tab. daily Cozaar 100 Mg Tabs (Losartan potassium) ..... One tab. daily & #13;BP today: 140/95 P rior BP: 112/78 (03/22/2013) Labs Reviewed: C reat: 0.85 (02/11/2013) C hol: 258 (12/22/2012) LDL: 157 (12/22/2012) T (12/22/2012) Tanisha Acevedo MD test results : O rders: Tanya Hauser (CPT-70908) Tanisha Acevedo MD test results : B P today: 140/95 Prior BP: 112/78 (03/22/2013) C HOL: 258 (12/22/2012) LDL: 157 (12/22/2012) T (12/22/2012) Orders: Tanya ernandez Echo (CPT-96619) His updated medication list for this problem includes: Welchol 625 Mg Tabs (Colesevelam hcl) ..... 3 tabs twice daily Tanisha Acevedo MD test results : H is updated medication list for this problem includes: Cozaar 100 Mg Tabs (Losartan potassium) ..... One tab. daily BP today: 140/95 Prior BP: 112/78 (03/22/2013) H CT: 49.9 (02/11/2013) Platelets: 177 THOUSAND/UL (02/11/2013) R BC: 4.85 MILLION/UL (02/11/2013) BUN: 7 (02/11/2013) Creat: 0.85 (02/11/2013) Glucose: 109 (02/11/2013) N a+: 138 (02/11/2013) K+: 4.2 (02/11/2013) Cl: 102 (02/11/2013) CHOL: 258 (12/22/2012) LDL: 157 (12/22/2012) T (12/22/2012) Orders: Tanya ernandez Echo (CPT-30180) Tanisha Acevedo MD test results Tanisha Acevedo MD test results : O rders: C omplete Echo (CPT-40430) Tanisha Acevedo MD test results : O rders: C omplete Echo (CPT-05625) Tanisha Acevedo MD follow up: T he following medications were removed from the medication list: Welchol Pack (Colesevelam hcl pack) ..... Mix 1 pack in 4-8 oz. of water, fruit juice, or diet soft drink once daily. take with a meal. Corby Franco MD follow up:Pt comes t o f/u on his PAD. He is feelig well and his symptoms have resolved. He has developed some edema. The pain is better and his numbness is still there. f eels better- he wants to matthieu his previous doc and I discouraged him as much as possible Corby Franco MD discuss stent to left leg Tanisha Acevedo MD discuss stent to lef t leg : B P today: 161/93 Prior BP: 151/90 (12/08/2012) D iscussed lifestyle modifications, diet, antacids/medications, and preventive measures. Handout provided. Tanisha Acevedo MD discuss stent to lef t leg : H is updated medication list for this problem includes: Aspirin 81 Mg Tabs (Aspirin) ..... One tab. daily Cozaar 100 Mg Tabs (Losartan potassium) ..... One tab. daily BP today: 161/93 P rior BP: 151/90 (12/08/2012) Labs Reviewed: C reat: 1.41 (12/22/2012) C hol: 258 (12/22/2012) LDL: 157 (12/22/2012) T (12/22/2012) Tanisha Acevedo MD discuss stent to left leg Tanisha Acevedo MD discuss stent to left leg Tanisha Acevedo MD discuss stent to lef t leg : B P today: 161/93 Prior BP: 151/90 (12/08/2012) C HOL: 258 (12/22/2012) LDL: 157 (12/22/2012) T (12/22/2012) Tanisha Acevedo MD discuss stent to lef t leg : T he following medications were removed from the medication list: Plavix 75 Mg Tabs (Clopidogrel bisulfate) ..... 1 tab daily His updated medication list for this problem includes: Aspirin 81 Mg Tabs (Aspirin) ..... One tab. daily Tanisha Acevedo MD New Patient: O rders: A ortic Abdominal Ultrasound (CPT-06900) e Prescribe - Check this box if eRx is used (CPT-G8553) e Prescribe - Check this box if eRx is used (CPT-G8553) C omplete Echo (CPT-68424) Tanisha Acevedo MD New Patient: O rders: L ipid Strip (CPT-97079) e Prescribe - Check this box if eRx is used (CPT-G8553) C omplete Echo (CPT-10459) Tanisha Acevedo MD New Patient: O rders: A rterial - SENSILASE (CPT-73647) A rterial Duplex Bi-Lower EX (CPT-33911) L ipid Strip (CPT-66500) e Prescribe - Check this box if eRx is used (CPT-G8553) C omplete Echo (CPT-77556) Tanisha Acevedo MD New Patient: O rders: E KG (CPT-60778) A rterial - SENSILASE (CPT-57792) A rterial Duplex Bi-Lower EX (CPT-01102) L ipid Strip (CPT-22273) e Prescribe - Check this box if eRx is used (CPT-G8553) C omplete Echo (CPT-08890) Tanisha Acevedo MD New Patient: H is updated medication list for this problem includes: Aspirin 81 Mg Tabs (Aspirin) ..... One tab. daily Cozaar 100 Mg Tabs (Losartan potassium) ..... One tab. daily Tanisha Acevedo MD New Patient: O rders: A rterial - SENSILASE (CPT-53928) A rterial Duplex Bi-Lower EX (CPT-01437) L ipid Strip (CPT-17750) e Prescribe - Check this box if eRx is used (CPT-G8553) C omplete Echo (CPT-94037) Tanisha Acevedo MD Date Name Complete Echo Complete Echo myocardial blood [place] w (PET) Stress Cardiac PET-C T BASIC METABOLIC PANE L W/EGFR CBC (INCLUDES DIFF/P LT) HEMOGLOBIN A1c LIPID PANEL LIPID PANEL CT Lower Extremity w ithout contrast Arterial Duplex Bi-L ower EX LIPID PANEL Sleep Study - split night Lipoprotein (a) CRP, high sensitivit y Microalb/Creatinine Urine, Random Lipoprotein (a) Sleep Study - split night LIPID PANEL Carotid Duplex Bilat eral Sleep Study Home Complete Echo Leqvio (Inclisiran) Complete Echo Complete Echo RPM (remote patient monitoring) Complete Echo LIPID PANEL Complete Echo BASIC METABOLIC PANE L W/EGFR IRON AND TOTAL IRON BINDING CAPACITY FERRITIN CBC (INCLUDES DIFF/P LT) CBC (INCLUDES DIFF/P LT) BASIC METABOLIC PANE L W/EGFR RPR (MONITOR) W/REFL TITER COVID19 High Affinit y Antibodies (LC) Complete Echo Complete Echo LIPID PANEL Coronary Stent - DPH PROTHROMBIN TIME WIT H INR CBC (INCLUDES DIFF/P LT) BASIC METABOLIC PANE L W/EGFR Complete Echo Venous Doppler Bilat eral LE - Reflux PROTHROMBIN TIME WIT H INR LIPID PANEL CBC (INCLUDES DIFF/P LT) BASIC METABOLIC PANE L W/EGFR CT Angio AIF (Abd, l ower extremities) Arterial Duplex Bi-L ower EX CT, Coronary Calcium Score BASIC METABOLIC PANE L W/EGFR CT, Coronary Calcium Score HEMOGLOBIN A1c LIPID PANEL CBC (INCLUDES DIFF/P LT) Arterial Duplex Bi-L ower EX Complete Echo RPR (MONITOR) W/REFL TITER PROBNP, N TERMINAL VITAMIN B12 FOLATE, SERUM IRON AND TOTAL IRON BINDING CAPACITY FERRITIN CBC (INCLUDES DIFF/P LT) Vitamin D, 25-Hydrox y HEMOGLOBIN A1c CT, Coronary Calcium Score HEMOGLOBIN A1c VITAMIN D, 25-HYDROX Y, LC/MS/MS CBC (INCLUDES DIFF/P LT) IRON AND TOTAL IRON BINDING CAPACITY FERRITIN CT, Coronary Calcium Score Sleep Study Home FOLATE, SERUM VITAMIN B12 PROBNP, N TERMINAL JAK2 Gene, V617F Mut ation, Qt METHYLMALONIC ACID Vitamin B12 Erythropoietin (EPO) , Serum JAK2 Gene, V617F Mut ation, Qt LIPID PANEL Arterial Duplex Uppe r Extremity Bilateral LIPID PANEL Complete Echo Complete Echo Arterial Duplex Bi-L ower EX Carotid Duplex Bilat eral Complete Echo Aortic Abdominal Ult rasound Arterial - SENSILASE HISTORY OF PROCEDURES Procedure Date Procedure Name Provider Procedure Notes S tatus Complex e/m visit add on Tanisha Acevedo MD completed Complex e/m visit add on Tanisha Acevedo MD [04/12/2024 - nelson] MEDICARE completed EKG Tanisha Acevedo MD [04/12/2024 - nelson] MEDICARE completed EKG Corby Franco MD completed EKG Tanisha Acevedo MD complete d EKG Tanisha Acevedo MD complete d CT- Coronary CA score Tanisha Acevedo MD completed SNOMED-CT: 019612949530285 Current Medications Documented Tanisha Acevedo MD completed Stress EKG Stephie Thompson MD complet ed Regadenoson, 4 units Tanisha Acevedo MD completed Cardiolite, 2 units Tanisha Acevedo MD completed SPECT Images Stephie Thompson MD compl eted SNOMED-CT: 34311902 Physical Exam, Performed: Pulse Exam of Foot Tanisha Acevedo MD completed SNOMED-CT: 601148247813575 Current Medications Documented Tanisha Acevedo MD completed EKG Corby Franco MD completed SNOMED-CT: 101035796371467 Current Medications Documented Corby Franco MD completed SNOMED-CT: 758241964681628 Current Medications Documented Corby Franco MD completed Nancy Acevedo MD complete d Nancy Acevedo MD complete d Nancy Acevedo MD complete d SNOMED-CT: 490031316688072 Current Medications Documented Mateo Agustin MD completed Nancy Acevedo MD complete d SNOMED-CT: 567000592050024 Current Medications Documented Mateo gAustin MD completed Protime Tanisha Acevedo MD complete d EKG Tanisha Acevedo MD complete d Lipid Strip Cuate Lynne RN completed ePrescribe - Check t his box if eRx is used Tanisha Acevedo MD completed Lipid Strip Tanisah Acevedo MD complet ed EKG Tanisha Acevedo MD complete d
--- OUTSIDE RECORDS SUMMARY | 2024-07-21 15:30 | XMS_ITS | Clinical Summary ---
Author Organization [facility] Address [address] [place] [address] Care Team Providers Care Hr Manager Name Role Phone Romulo Carson MD Primary Care Provider [phone] Source Comments [facility],non-owned Affiliates and Associated Physician Practices is amultiple site organization consisting of ambulatory clinics and hospital sitesin [place], [place], [place] and [place]. This disclosure is being madepursuant to the Care Everywhere program and may not contain all information available regarding this patient. Last updated 18.[facility] [place] Allergies Active Allergy Reactions Criticality Noted Date Comments Penicillins Rash Medium 06/21/2019 Sulfa Drugs Rash Medium 06/21/2019 Medications * Be aware that medications may not be up to date on this document. Alwaysverify current medications with the patient. 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 06/21/2019 Social History Tobacco Use Types Packs/Day Years Used Date Smoking Tobacco: Former Smokeless Tobacco: Never Sex and Gender Information Value Date Recorded Sex Assigned at Not on file Gender Identity Not on file Sexual Orientation Not on file Last Filed Vital Signs Vital Sign Reading Time Taken Comments Blood Pressure 135/76 06/22/2019 7:21 AM ANALYTICS MANAGER Pulse 66 06/22/2019 7:21 AM ANALYTICS MANAGER Temperature 36.8 C (98.3 F) 06/22/2019 7:21 AM ANALYTICS MANAGER Respiratory Rate 18 06/22/2019 7:21 AM ANALYTICS MANAGER Oxygen Saturation 96% 06/22/2019 7:21 AM ANALYTICS MANAGER Inhaled Oxygen Concentration - - Weight 93.6 kg (206 lb 6.4 oz) 06/21/2019 8:08 A M ANALYTICS MANAGER Height 180.3 cm (5' 11 ) 06/21/2019 8:08 AM ANALYTICS MANAGER Body Mass Index 28.79 06/21/2019 8:08 AM ANALYTICS MANAGER Plan of Treatment Health Maintenance Due Date Last Done Comments MEDICARE AWV 12 MONTHS 1945 HEPATITIS C SCREENING 03/07/1964 DTAP/TDAP/TD VACCINES (1 - Tdap) 1965 PNEUMOCOCCAL VACCINE 50+ (1 of 1 - PCV) 1996 ZOSTER VACCINE (1 of 2) 1996 Respiratory Syncytial Virus (RSV) Vaccine Pt: or over 60 yrs (1 - 1-dose 75+ series) 2021 COVID-19 VACCINE ( - 2023-2 5 season) 2024 INFLUENZA VACCINE (#1) 2024 DEPRESSION SCREENING 05/03/2024 HEPATITIS B VACCINE Aged Out No longe r eligible based on patient's age to complete this topic HIB VACCINE Aged Out No longer eligi ble based on patient's age to complete this topic HPV VACCINE Aged Out No longer eligi ble based on patient's age to complete this topic MENINGOCOCCAL (Group B) VACC INE SHARED DECISION-MAKING Aged Out No longer eligibl e based on patient's age to complete this topic MENINGOCOCCAL GROUPS A/C/Y/W VACCINE Aged Out No longer eligible b ased on patient's age to complete this topic Advance Directives * Full Code (Latest Code Status on File) Date Activated Date Inactivated Comments 06/21/2019 10:31 AM 06/22/2019 11:58 AM Care Teams Hr Manager Relationship Specialty Start Date End Date Romulo Carson MD [address], [place] [id number] PCP - General Internal Medicine 06/21/19
[2024-07-21 15:54] LABS: Hematocrit 53.2 % (37.0-46.0); Hemoglobin 18.3 g/dL (12.4-15.3); Mean Corpuscular HGB Conc 34.4 g/dL (32-36); Mean Corpuscular Hemoglobin 31.6 pg (27.0-31.0); Mean Corpuscular Volume 91.7 fL (78.0-102.0); Mean Platelet Volume 9.8 fl (8.7-11.0); Platelet Count Result 214 K/mm3 (150-420); Red Cell Distribution Width 12.8 % (11.6-14.4); White Blood Count 8.2 K/mm3 (4.8-10.8)
[2024-07-21 16:10] LABS: Band Neutrophils Percent 0 % (0-6); Basophils Percent Manual 0 % (0-1); Eosinophils Absolute Manual 0.16 K/mm3 (0.02-0.50); Eosinophils Percent Manual 2 % (1-6); Lymphocytes Absolute Manual 1.31 K/mm3 (1.1-4.5); Lymphocytes Percent Manual 16 % (18-44); Monocytes Absolute Manual 1.72 K/mm3 (0.1-0.90); Monocytes Percent Manual 21 % (3-9); Neutrophils Percent Manual 61 % (46-73); Total Cells Counted 100
[2024-07-21 16:11] LABS: Platelet Estimate Adequate (Adequate)
[2024-07-21 16:47] LABS: Alanine Aminotransferase 53 U/L (16-63); Albumin Level 4.1 g/dL (3.4-5.0); Alkaline Phosphatase 83 U/L (46-116); Amylase 31 U/L (25-115); Anion Gap 10 mmol/L (4-12); Aspartate Amino Transferase 37 U/L (15-37); Bilirubin,Total 0.8 mg/dL (0.00-1.00); Blood Urea Nitrogen 17 mg/dL (7-18); Calcium 9.4 mg/dL (8.5-10.1); Carbon Dioxide 29 mmol/L (21-32); Chloride 98 mmol/L (98-108); Estimated Glomerular Filt Rate > 60; Glucose 97 mg/dL (70-99); Lipase 28 U/L (16-77); Osmolality Calculated 285 mOsm/kg (285-295); Phosphorus 4.8 mg/dL (2.6-4.7); Potassium 3.7 mmol/L (3.5-5.1); Sodium 137 mmol/L (136-145); Total Protein 7.4 g/dL (6.4-8.2)
== END 2024-07-21 15:27 | disposition home or self-care (01) ==
PROVIDERS: PCP Internal Medicine; Visit Provider Internal Medicine
DX: R10.9 Unspecified abdominal pain (principal); R19.7 Diarrhea, unspecified
CPT/HCPCS: 36415; 74019; 80053; 82150; 83690; 83735; 84100; 85025